=== PATIENT | male | born 1945 | race Caucasian/White ===

== ENCOUNTER 2020-08-18 22:55 | Emergency (ER) | payer OTHER ==
[2020-08-18 23:39] LABS: Absolute Lymphocytes (CBC) 1.3 K/uL (0.7-4.9); Basophils % 0.8 % (0-1.3); Hematocrit 39.2 % (39.6-49.0); Lymphocytes % 16.8 % (15.3-44.8); MPV 7.7 fL (7.6-11.3); RBC Red Blood Cell Count 4.39 M/uL (4.33-5.43)
[2020-08-18 23:42] LABS: Protime INR 0.97
[2020-08-18 23:50] LABS: Albumin 3.9 g/dL (3.4-5.0); Bilirubin Direct 0.1 mg/dL (0-0.2); Bilirubin Total 0.4 mg/dL (0.2-1.0); Potassium 3.8 mmol/L (3.5-5.1); Protein, Total 7.4 g/dL (6.4-8.2)
[2020-08-19] MEDS ORDERED: MORPHINE 4 MG/ML SYR ONE (00:05)
[2020-08-19] MEDS ORDERED: ONDANSETRON 4 MG/2 ML VIAL ONE (00:06)
--- NOTE | 2020-08-19 02:16 | EDPHYS ---
Physician Documentation [facility] Name: Lazaro Shipman Age: 75 yrs Sex: Male : 1945 Arrival Date: 08/18/2020 Time: 22:58 Bed 19 Private MD: ED Physician Bassem Hicks HPI: 08/18 23:11 This 75 yrs old Male presents to ER via Ambulatory with complaints of Leg mh7 Pain. 23:11 The patient presents with an injury. The complaints affect the medial aspect of left mh7 thigh. Context:. 23:12 Context: The problem was sustained at work, resulted from a direct blow, Catie, the mh7 patient falling, while walking, the patient tripping, the patient can fully bear weight, the patient is able to ambulate, without difficulty, Problem is a result from a previous injury: No. Onset: The symptoms/episode began/occurred today, at 15:00. Modifying factors: The symptoms are alleviated by nothing. the symptoms are aggravated by nothing. Associated signs and symptoms: Pertinent positives: swelling, Pertinent negatives calf tenderness, fever, nausea, numbness, rash, tingling, vomiting, warmth, weakness. Treatment prior to arrival includes: no previous treatment. Severity of symptoms: At their worst the symptoms were moderate, earlier today, in the emergency department the symptoms are unchanged. Historical: - Allergies: 23:09 No Known Allergies; jb4 - Home Meds: 23:09 Metoprolol Tartrate Oral [Active]; jb4 - PMHx: 23:09 Hypertension; jb4 - PSHx: 23:09 None; jb4 - Immunization history:: Adult Immunizations up to date. - Social history:: Smoking status: Patient denies any tobacco usage or history of. Patient/guardian denies using alcohol, street drugs. ROS: 23:12 Constitutional: Negative for fever, chills, and weight loss, Eyes: Negative for injury, mh7 pain, redness, and discharge, ENT: Negative for injury, pain, and discharge, Neck: Negative for injury, pain, and swelling, Cardiovascular: Negative for chest pain, palpitations, and edema, Respiratory: Negative for shortness of breath, cough, wheezing, and pleuritic chest pain, Abdomen/GI: Negative for abdominal pain, nausea, vomiting, diarrhea, and constipation, Back: Negative for injury and pain, : Negative for injury, bleeding, discharge, and swelling, Neuro: Negative for headache, weakness, numbness, tingling, and seizure, Psych: Negative for depression, anxiety, suicide ideation, homicidal ideation, and hallucinations, Allergy/Immunology: Negative for hives, rash, and allergies, Endocrine: Negative for neck swelling, polydipsia, polyuria, polyphagia, and marked weight changes, Hematologic/Lymphatic: Negative for swollen nodes, abnormal bleeding, and unusual bruising. Exam: 08/19 02:10 Constitutional: This is a well developed, well nourished patient who is awake, alert, mh7 and in no acute distress. Head/Face: Normocephalic, atraumatic. Eyes: Pupils equal round and reactive to light, extra-ocular motions intact. Lids and lashes normal. Conjunctiva and sclera are non-icteric and not injected. Cornea within normal limits. Periorbital areas with no swelling, redness, or edema. Neck: Trachea midline, no thyromegaly or masses palpated, and no cervical lymphadenopathy. Supple, full range of motion without nuchal rigidity, or vertebral point tenderness. No Meningismus. Chest/axilla: Normal chest wall appearance and motion. Nontender with no deformity. No lesions are appreciated. Cardiovascular: Regular rate and rhythm with a normal S1 and S2. No gallops, murmurs, or rubs. Normal PMI, no JVD. No pulse deficits. Respiratory: Lungs have equal breath sounds bilaterally, clear to auscultation and percussion. No rales, rhonchi or wheezes noted. No increased work of breathing, no retractions or nasal flaring. Abdomen/GI: Soft, non-tender, with normal bowel sounds. No distension or tympany. No guarding or rebound. No evidence of tenderness throughout. Back: No spinal tenderness. No costovertebral tenderness. Full range of motion. Neuro: Awake and alert, GCS 15, oriented to person, place, time, and situation. Cranial nerves II-XII grossly intact. Motor strength 5/5 in all extremities. Sensory grossly intact. Cerebellar exam normal. Normal gait. Psych: Awake, alert, with orientation to person, place and time. Behavior, mood, and affect are within normal limits. Musculoskeletal/extremity: Extremities: noted in the medial aspect of left thigh: ecchymosis, swelling, tenderness, ROM: intact in all extremities, Circulation is intact in all extremities. Pulses: are normal with no appreciated deficits, Perfusion: the patient is normally perfused throughout, Perfusion: the extremity is normally perfused throughout, Calf tenderness, is absent, Edema, is not appreciated, Sensation intact. Compartment Syndrome exam of affected extremity: is normal. no numbness, no tingling, no sensation deficit, no palor, no weak pulses, Joints: All joints appear normal with full range of motion. Weight bearing: able to fully bear weight, without difficulty, Tendon exam: specific tendon testing normal through active and passive range of motion Skin: injury, contusion(s), that are deep, of the medial aspect of left thigh. Vital Signs: 08/18 23:15 BP 151 / 76; Pulse 100; Resp 16; Temp 98.5; Pulse Ox 98% on R/A; Pain 0/10; jb4 08/19 00:15 BP 137 / 96; Pulse 95; Resp 16; Pulse Ox 95% on R/A; jb4 01:30 BP 108 / 51; Pulse 89; Resp 16; Pulse Ox 96% on R/A; jb4 MDM: 02:10 Differential diagnosis: closed fracture, contusion, abrasion, Heamtoma. Data reviewed: [facility] vital signs, nurses notes, lab test result(s), CBC, electrolytes, radiologic studies, CT scan, plain films. Data interpreted: Pulse oximetry: on room air is 96 %. Interpretation: normal. Counseling: I had a detailed discussion with the patient and/or guardian regarding: the historical points, exam findings, and any diagnostic results supporting the discharge/admit diagnosis, lab results, radiology results, the need for outpatient follow up, to return to the emergency department if symptoms worsen or persist or if there are any questions or concerns that arise at home. Response to treatment: the patient's symptoms have markedly improved after treatment. 02:15 Patient medically screened. [facility] 08/18 23:11 Order name: Basic Metabolic Panel; Complete Time: 00:01 [facility] 08/18 23:11 Order name: CBC with Diff; Complete Time: 00:01 [facility] 08/18 23:11 Order name: Type And Screen; Complete Time: 02:10 [facility] 08/18 23:11 Order name: LFT's; Complete Time: 00:01 [facility] 08/18 23:11 Order name: Protime (+inr); Complete Time: 00:01 [facility] 08/18 23:11 Order name: Ptt, Activated; Complete Time: 00:01 [facility] 08/18 23:11 Order name: Labs collected and sent; Complete Time: 23:25 [facility] 08/18 23:11 Order name: Femur Left XRAY [facility] 08/19 00:07 Order name: CPK; Complete Time: 02:10 [facility] 08/19 00:12 Order name: Lower Ext Angio [facility] 08/19 02:10 Order name: Bridger Wrap; Complete Time: 02:26 [facility] Administered Medications: 00:05 Drug: Zofran (Ondansetron) 4 mg Route: IVP; Site: right antecubital; [facility] 00:30 Follow up: Response: No adverse reaction [facility] 00:07 Drug: morphine 4 mg Route: IVP; Site: right antecubital; 4 00:30 Follow up: Response: No adverse reaction; Pain is decreased; RASS: Alert and Calm (0) 4 Disposition: 08/19/20 02:15 Discharged to Home. Impression: Fall-Mechanical, Left Thigh Hematoma. - Condition is Stable. - Discharge Instructions: Hematoma, [id number], Fall Prevention in the Home, [id number]. - Prescriptions for Tylenol- Codeine #3 300-30 mg Oral Tablet - take 2 tablets by ORAL route every 6 hours As needed; 20 tablet. - Medication Reconciliation Form, Thank You Letter, Antibiotic Education, Prescription Opioid Use form. - Follow up: Private Physician; When: 1 - 2 days; Reason: Worsening of condition, Recheck today's complaints, Continuance of care, Re-evaluation by your physician. - Problem is new. - Symptoms have improved. Signatures: Dispatcher [facility] Marvin Vogel RN RN jb4 Bassem Hicks MD MD 7 Corrections: (The following items were deleted from the chart) 02:28 02:15 08/19/2020 02:15 Discharged to Home. Impression: Fall-Mechanical; Left Thigh jb4 Hematoma. Condition is Stable. Forms are Medication Reconciliation Form, Thank You Letter, Antibiotic Education, Prescription Opioid Use. Follow up: Private Physician; When: 1 - 2 days; Reason: Worsening of condition, Recheck today's complaints, Continuance of care, Re-evaluation by your physician. Problem is new. Symptoms have improved. mh7
--- NOTE | 2020-08-19 02:16 | ER ---
Nurse's Notes [facility] Name: Lazaro Shipman Age: 75 yrs Sex: Male : 1945 Arrival Date: 08/18/2020 Time: 22:58 Bed 19 Private MD: Diagnosis: Fall-Mechanical;Left Thigh Hematoma Presentation: 08/18 23:07 Chief complaint: Patient states: I slipped and fell on the blade of a lexie at 3pm on jb4 my left thigh. Coronavirus screen: Client denies travel out of the [place] in the last 14 days. At this time, the client does not indicate any symptoms associated with coronavirus-19. Ebola Screen: No symptoms or risks identified at this time. Initial Sepsis Screen: Does the patient meet any 2 criteria? No. Patient's initial sepsis screen is negative. Does the patient have a suspected source of infection? No. Patient's initial sepsis screen is negative. Risk Assessment: Do you want to hurt yourself or someone else? Patient reports no desire to harm self or others. Onset of symptoms was August 18, 2020. Transition of care: patient was not received from another setting of care. 23:07 Method Of Arrival: Ambulatory jb4 23:07 Acuity: KERI 3 jb4 Historical: - Allergies: 23:09 No Known Allergies; jb4 - Home Meds: 23:09 Metoprolol Tartrate Oral [Active]; jb4 - PMHx: 23:09 Hypertension; jb4 - PSHx: 23:09 None; jb4 - Immunization history:: Adult Immunizations up to date. - Social history:: Smoking status: Patient denies any tobacco usage or history of. Patient/guardian denies using alcohol, street drugs. Screenin:15 Abuse screen: Denies threats or abuse. Nutritional screening: No deficits noted. jb4 Tuberculosis screening: No symptoms or risk factors identified. Fall Risk None identified. Assessment: 23:15 General: Appears in no apparent distress. comfortable, Behavior is calm, cooperative, jb4 appropriate for age. Pain: Denies pain. Neuro: Level of Consciousness is awake, alert, obeys commands, Oriented to person, place, time, situation. Cardiovascular: Patient's skin is warm and dry. Respiratory: Airway is patent Respiratory effort is even, unlabored, Respiratory pattern is regular, symmetrical. GI: No signs and/or symptoms were reported involving the gastrointestinal system. : No signs and/or symptoms were reported regarding the genitourinary system. EENT: No signs and/or symptoms were reported regarding the EENT system. Derm: Skin is intact, Skin is pink, warm \T\ dry. Musculoskeletal: Circulation, motion, and sensation intact. Range of motion: intact in all extremities. Injury Description: Bruise sustained to medial aspect of left thigh is green, purple, yellow, was sustained 6-12 hours ago. hematoma to the left thigh. 08/19 00:24 Reassessment: Patient appears in no apparent distress at this time. Patient and/or jb4 family updated on plan of care and expected duration. Pain level reassessed. Patient is alert, oriented x 3, equal unlabored respirations, skin warm/dry/pink. 01:45 Reassessment: Patient appears in no apparent distress at this time. Patient and/or jb4 family updated on plan of care and expected duration. Pain level reassessed. Patient is alert, oriented x 3, equal unlabored respirations, skin warm/dry/pink. Family at the bedside. 02:27 Reassessment: Patient appears in no apparent distress at this time. Patient and/or jb4 family updated on plan of care and expected duration. Pain level reassessed. Patient is alert, oriented x 3, equal unlabored respirations, skin warm/dry/pink. Patient denies pain at this time. Patient states feeling better. Vital Signs: 08/18 23:15 BP 151 / 76; Pulse 100; Resp 16; Temp 98.5; Pulse Ox 98% on R/A; Pain 0/10; jb4 08/19 00:15 BP 137 / 96; Pulse 95; Resp 16; Pulse Ox 95% on R/A; jb4 01:30 BP 108 / 51; Pulse 89; Resp 16; Pulse Ox 96% on R/A; jb4 ED Course: 08/18 22:58 Patient arrived in ED. ag3 23:00 Bassem Hicks MD is Attending Physician. mh7 23:01 Marvin Vogel, ROLAND is Primary Nurse. jb4 23:08 Triage completed. jb4 23:09 Arm band placed on right wrist. jb4 23:20 Initial lab(s) drawn, by tx, sent to lab. T\T\S collected, blood band applied to patient. jp3 Inserted saline lock: 20 gauge in right antecubital area, using aseptic technique. Blood collected. Patient maintains SpO2 saturation greater than 95% on room air. 23:24 Bed in low position. Call light in reach. Side rails up X 1. Verbal reassurance given. jp3 Pulse ox on. NIBP on. 08/19 00:10 Femur Left XRAY In Process Unspecified. EDMS 01:12 Lower Ext Angio In Process Unspecified. EDMS 02:28 No provider procedures requiring assistance completed. IV discontinued, intact, jb4 bleeding controlled, No redness/swelling at site. Pressure dressing applied. Administered Medications: 00:05 Drug: Zofran (Ondansetron) 4 mg Route: IVP; Site: right antecubital; 4 00:30 Follow up: Response: No adverse reaction jb4 00:07 Drug: morphine 4 mg Route: IVP; Site: right antecubital; jb4 00:30 Follow up: Response: No adverse reaction; Pain is decreased; RASS: Alert and Calm (0) [facility] Outcome: 02:15 Discharge ordered by . [facility] 02:28 Discharged to home ambulatory, with family. jb4 02:28 Condition: stable 02:28 Discharge instructions given to patient, Instructed on discharge instructions, follow up and referral plans. no driving heavy equipment, medication usage, Demonstrated understanding of instructions, follow-up care, medications, Prescriptions given X 1. 02:28 Patient left the ED. jb4 Signatures: Dispatcher [employer] EDMarvin Ferraro RN RN jb4 Brenden Bhatti 3 Sho Frazier 3 Bassem Hicks MD MD 7
[2020-08-19 09:34] VITALS: TEMP 98.5
[2020-08-19 09:37] VITALS: BP 108/51; O2SAT 96
--- NOTE | 2020-08-19 15:53 | RAD REPORT ---
EXAM DESCRIPTION: CT Angiography of the Left Lower Extremity With Intravenous Contrast CLINICAL HISTORY: The patient is 75 years old and is Male; left thigh pain TECHNIQUE: Axial computed tomographic angiography images of the left lower extremity with intravenou s contrast. Sagittal and coronal reformatted images were created and reviewed. This CT exam was p erformed using one or more of the following dose reduction techniques: automated exposure control, adjustment of the mA and/or kV according to patient size, and/or use of iterative reconstruction tech nique. MIP reconstructed images were created and reviewed. COMPARISON: No relevant prior studies available. FINDINGS: VASCULATURE: LEFT FEMORAL/POPLITEAL ARTERIES: No acute findings. No occlusion or significant stenosis. LOWER EXTREMITY: BONES/JOINTS: No acute fracture. No dislocation. SOFT TISSUES: Fat-containing left inguinal hernia is present. Skin thickening along the medial left thigh is present. Diffuse subcutaneous edema along the medial left thigh is present. An 8.2 x 5. 0 cm slightly heterogeneous collection along the medial left thigh subcutaneous tissues. There is a b lush of contrast within this collection. IMPRESSION: No CT evidence of injury to the major arterial vasculature of the left upper leg. Small focus of contrast extravasation in the medial soft tissues related to a small branch vessel with asso ciated hematoma formation. Electronically signed by: Marycruz Nava MD 08/19/2020 1:47 AM PECAN PICKER Due to temporary technical issues with the PACS/Fluency reporting system, reports are being signed by the in house radiologists without review as a courtesy to insure prompt reporting. The interpreting radiologist is fully responsible for the content of the report.
--- NOTE | 2020-08-19 16:31 | RAD REPORT ---
EXAM DESCRIPTION: XR Femur Left CLINICAL HISTORY: Trauma TECHNIQUE: Two views of the left femur are submitted. COMPARISON: None available for comparison FINDINGS: Bones: No acute fracture. Joints: No dislocation. Soft tissues: Soft tissue swelling about the medial aspect of the thigh. IMPRESSION: Medial soft tissue swelling. No acute fracture. Electronically signed by: Silvia Levi MD 08/19/2020 12:28 AM COOK LARDER Due to temporary technical issues with the PACS/Fluency reporting system, reports are being signed by the in house radiologists without review as a courtesy to insure prompt reporting. The interpreting radiologist is fully responsible for the content of the report.
== END 2020-08-19 02:28 | disposition home or self-care (01) ==
LOC: ER 22:55
DX: S70.12XA Contusion of left thigh, initial encounter (principal); W01.198A Fall on same level from slipping, tripping and stumbling with subsequent striking against other object, initial encounter; Y93.89 Activity, other specified; Y92.89 Other specified places as the place of occurrence of the external cause; Y99.8 Other external cause status; I10 Essential (primary) hypertension
CPT/HCPCS: 85025; 80048; 36415; 86900; 86850; 82550; 85610; 86901; 80076; 85730; 73706; 73552; 96375; 96374; 99284; Q9967

== ENCOUNTER 2021-04-13 17:20 | Emergency (ER) | payer OTHER ==
[2021-04-13] MEDS ORDERED: NA CHLORIDE 0.9% 1,000 ML ONE (21:08)
[2021-04-13] MEDS ORDERED: MORPHINE 4 MG/ML SYR ONE (21:08)
[2021-04-13] MEDS ORDERED: ONDANSETRON 4 MG/2 ML VIAL ONE (21:08)
[2021-04-13 21:22] LABS: Absolute Lymphocytes (CBC) 0.5 K/uL (0.7-4.9); Basophils % 0.2 % (0-1.3); Hematocrit 47.1 % (39.6-49.0); Lymphocytes % 3.6 % (15.3-44.8); MPV 7.7 fL (7.6-11.3); RBC Red Blood Cell Count 5.21 M/uL (4.33-5.43)
[2021-04-13 21:47] LABS: Albumin 4.2 g/dL (3.4-5.0); Bilirubin Direct 0.2 mg/dL (0-0.2); Bilirubin Total 0.7 mg/dL (0.2-1.0); Potassium 3.7 mmol/L (3.5-5.1); Protein, Total 8.3 g/dL (6.4-8.2)
--- NOTE | 2021-04-13 21:59 | RAD REPORT ---
EXAM DESCRIPTION: CTAbdomen Pelvis W Contrast - 04/13/2021 9:49 pm CLINICAL HISTORY: Abdominal pain. ABD PAIN COMPARISON: <Comparisons> TECHNIQUE: Biphasic CT imaging of the abdomen and pelvis was performed with 100 ml non-ionic IV cont rast. All CT scans are performed using dose optimization technique as appropriate and may include automated exposure control or mA/KV adjustment according to patient size. FINDINGS: The lung bases are clear. No focal liver lesions are identified. Gallbladder is unremarkable. The pancreas is unremarkable. The spleen is unremarkable. No adrenal masses are seen. Left nephrolithiasis. Mild right-sided hydroneph rosis secondary to a 7 millimeter stone in the right distal ureter, proximal to the UVJ. Atherosclero sis. No bowel obstruction is identified. No aneurysm. Normal appendix. Fat containing inguinal hernia s. Fused sacroiliac joints may be secondary underlying degenerative changes. Degenerate changes are p resent spine. No suspicious bony findings. 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 IMPRESSION: Mild right-sided hydronephrosis secondary to a 7 millimeter stone in the right distal ur eter.
[2021-04-13 22:04] LABS: Urine Blood 3+ (Negative); Urine Glucose Negative (Negative); Urine Protein Negative (Negative); Urine Specific Gravity 1.015 (1.005-1.030); Urine pH 6.5 (5.0-7.0)
[2021-04-13 22:13] LABS: Urine Bacteria >50 /HPF (NONE SEEN)
[2021-04-13] MEDS ORDERED: TAMSULOSIN 0.4 MG SR CAP ONE (22:42)
[2021-04-13] MEDS ORDERED: CEFTRIAXONE/SWI 1gm 1 GM/10 ML SYR ONE (22:43)
[2021-04-13] MEDS ORDERED: Magnesium Sulfate 2gm IVPB 2 G/50 ML BAG IV ONE (22:43)
--- NOTE | 2021-04-13 22:50 | EDPHYS ---
Physician Documentation [facility] Name: Lazaro Shipman Age: 75 yrs Sex: Male : 1945 Arrival Date: 04/13/2021 Time: 17:23 Bed 3 Private MD: ED Physician Bassem Hicks HPI: 04/13 23:24 This 75 yrs old Male presents to ER via Ambulatory with complaints of kb Abdominal Pain. 23:23 The patient presents with abdominal pain. kb 23:24 Onset: The symptoms/episode began/occurred today. The symptoms do not radiate. kb Associated signs and symptoms: Pertinent positives: constipation, dysuria, Pertinent negatives: nausea, vomiting, and diarrhea, fever. The symptoms are described as constant. Modifying factors: The symptoms are alleviated by nothing, the symptoms are aggravated by pressure. Severity of pain: At its worst the pain was moderate in the emergency department the pain is unchanged. The patient has not experienced similar symptoms in the past. The patient has not recently seen a physician. Historical: - Allergies: 17:33 No Known Allergies; ll1 - PMHx: 17:33 Hypertension; ll1 - PSHx: 17:33 None; ll1 - Immunization history:: Client reports receiving the 1st dose of the Covid vaccine, Flu vaccine is not up to date. - Social history:: Smoking status: Patient denies any tobacco usage or history of. ROS: 23:21 Constitutional: Negative for fever, chills, and weight loss. kb 23:21 Abdomen/GI: Positive for abdominal pain, constipation, Negative for nausea, vomiting, and diarrhea. 23:21 All other systems are negative. 23:21 : Positive for burning with urination. kb Exam: 23:21 Constitutional: This is a well developed, well nourished patient who is awake, alert, kb and in no acute distress. Head/Face: Normocephalic, atraumatic. ENT: Moist Mucous membranes Cardiovascular: Regular rate and rhythm with a normal S1 and S2. No gallops, murmurs, or rubs. No pulse deficits. Respiratory: Respirations even and unlabored. No increased work of breathing, no retractions or nasal flaring. Skin: Warm, dry with normal turgor. Normal color. MS/ Extremity: Pulses equal, no cyanosis. Neurovascular intact. Full, normal range of motion. Neuro: Awake and alert, GCS 15, oriented to person, place, time, and situation. Moves all extremities. Normal gait. Psych: Awake, alert, with orientation to person, place and time. Behavior, mood, and affect are within normal limits. 23:21 Abdomen/GI: Inspection: abdomen appears normal, Bowel sounds: normal, in all quadrants, Palpation: soft, in all quadrants, moderate abdominal tenderness, in the right lower quadrant. Vital Signs: 17:34 BP 192 / 95; Pulse 81; Resp 18; Temp 98.2; Pulse Ox 98% ; Weight 136.08 kg; Height 5 ll1 ft. 8 in. (172.72 cm); Pain 9/10; 22:02 BP 160 / 96; Pulse 78; Resp 16; Pulse Ox 99% on R/A; Pain 0/10; em 17:34 Body Mass Index 45.61 (136.08 kg, 172.72 cm) ll1 MDM: 20:26 Patient medically screened. kb 22:52 Data reviewed: vital signs, nurses notes. Data interpreted: Pulse oximetry: on room air kb is 99 %. Interpretation: normal. Counseling: I had a detailed discussion with the patient and/or guardian regarding: the historical points, exam findings, and any diagnostic results supporting the discharge/admit diagnosis, lab results, radiology results, the need for outpatient follow up, a urologist, to return to the emergency department if symptoms worsen or persist or if there are any questions or concerns that arise at home. 23:22 ED course: Pt has no upper abd tenderness, no nausea/vomiting. No s/s of pancreatitis. kb CT shows unremarkable pancreas. 23:23 ED course: Pain resolved at this time. kb 04/13 18:04 Order name: Urine Microscopic Only; Complete Time: 22:15 kb 04/13 20:27 Order name: Basic Metabolic Panel; Complete Time: 21:54 kb 04/13 20:27 Order name: CBC with Diff; Complete Time: 23:19 kb 04/13 20:27 Order name: Hepatic Function; Complete Time: 21:54 kb 04/13 20:27 Order name: Lipase; Complete Time: 21:54 kb 04/13 22:03 Order name: Urine Dipstick-Ancillary; Complete Time: 22:06 EDMS 04/13 20:40 Order name: CT Abd/Pelvis - IV Contrast Only; Complete Time: 22:02 kb 04/13 22:14 Order name: Urine Culture [facility] 04/13 22:16 Order name: Manual Differential; Complete Time: 23:19 [facility] 04/13 18:04 Order name: Urine Dipstick-Ancillary (obtain specimen); Complete Time: 22:03 kb 04/13 20:27 Order name: IV Saline Lock; Complete Time: 21:09 kb 04/13 20:27 Order name: Labs collected and sent; Complete Time: 21:09 kb Administered Medications: 21:05 Drug: NS 0.9% 1000 ml Route: IV; Rate: 1000 ml; Site: right antecubital; em 22:08 Follow up: IV Status: Completed infusion; IV Intake: 1000ml em 21:05 Drug: Zofran (Ondansetron) 4 mg Route: IVP; Site: right antecubital; em 22:02 Follow up: Response: No adverse reaction em 21:07 Drug: morphine 4 mg Route: IVP; Site: right antecubital; em 22:02 Follow up: Response: No adverse reaction; Marked relief of symptoms; Pain is decreased; em RASS: Alert and Calm (0) 22:27 Drug: Rocephin (cefTRIAXone) 1 grams Route: IV; Rate: calculated rate; Site: right em antecubital; 23:13 Follow up: Response: No adverse reaction; IV Status: Completed infusion; IV Intake: 10mlem 22:30 Drug: Magnesium Sulfate 2 grams Route: IVPB; Infused Over: 1 hrs; Site: right em antecubital; 23:31 Follow up: Response: No adverse reaction; IV Status: Completed infusion; IV Intake: 50mlem 22:30 Drug: Flomax (tamsulosin) 0.4 mg Route: PO; em 23:13 Follow up: Response: No adverse reaction em Disposition: 04/14 06:38 Co-signature as Attending Physician, Bassem Hicks MD. [email or web address] Disposition Summary: 04/13/21 22:49 Discharge Ordered Location: Home Condition: Stable kb Diagnosis - Calculus of ureter kb Followup: kb - With: Emergency Department - When: As needed - Reason: Worsening of condition Followup: kb - With: Private Physician - When: 2 - 3 days - Reason: Recheck today's complaints, Continuance of care, Re-evaluation by your physician Discharge Instructions: - Discharge Summary Sheet kb - Kidney Stones, [id number] kb - Dietary Guidelines to Help Prevent Kidney Stones kb Forms: - Medication Reconciliation Form kb - Thank You Letter kb - Antibiotic Education kb - Prescription Opioid Use kb Prescriptions: - Flomax 0.4 mg Oral capsule - take 1 capsule by ORAL route once daily for 10 days 1/2 hour following the same kb meal each day; 10 capsule; Refills: 0, Product Selection Permitted - Cipro 500 mg Oral Tablet - take 1 tablet by ORAL route every 12 hours for 10 days; 20 tablet; Refills: 0, kb Product Selection Permitted - Zofran 4 mg Oral Tablet - take 1 tablet by ORAL route every 6 hours As needed; 20 tablet; Refills: 0, kb Product Selection Permitted - Diclofenac Sodium 75 mg Oral tablet,delayed release (DR/EC) - take 1 tablet by ORAL route 2 times per day As needed; 30 tablet; Refills: 0, kb Product Selection Permitted - Tramadol 50 mg Oral Tablet - take 1 tablet by ORAL route every 8 hours as needed; 12 tablet; Refills: 0, kb Product Selection Permitted Signatures: Dispatcher [employer] EDMS Guerita Ward, FURNITURE SANDER-C FURNITURE SANDER-Khoa Dorado RN RN Lisa Sullivan RN RN ll1 Bassem Hicks MD MD [email or web address] Corrections: (The following items were deleted from the chart) 04/13 23:22 23:21 Abdomen/GI: Positive for abdominal pain, Negative for nausea, vomiting, and kb diarrhea, kb 23:23 23:22 ED course: Pt has no upper abd tenderness, no nausea/vomiting. No s/s of kb pancreatitis.. kb
--- NOTE | 2021-04-13 22:50 | ER ---
Nurse's Notes [facility] Name: Lazaro Shipman Age: 75 yrs Sex: Male : 1945 Arrival Date: 04/13/2021 Time: 17:23 Bed 3 Private MD: Diagnosis: Calculus of ureter Presentation: 04/13 17:34 Chief complaint: Patient states: RLQ abd pain since last night. + constipation. Slight ll1 dysuria at times. No fever. Coronavirus screen: Client denies travel out of the [place] in the last 14 days. At this time, the client does not indicate any symptoms associated with coronavirus-19. Ebola Screen: Patient denies travel to an Ebola-affected area in the 21 days before illness onset. Initial Sepsis Screen: Does the patient meet any 2 criteria? No. Patient's initial sepsis screen is negative. Does the patient have a suspected source of infection? Yes: Acute abdominal pain. Risk Assessment: Do you want to hurt yourself or someone else? Patient reports no desire to harm self or others. Onset of symptoms was April 12, 2021. 17:34 Method Of Arrival: Ambulatory ll1 17:34 Acuity: KERI 3 ll1 Historical: - Allergies: 17:33 No Known Allergies; ll1 - PMHx: 17:33 Hypertension; ll1 - PSHx: 17:33 None; ll1 - Immunization history:: Client reports receiving the 1st dose of the Covid vaccine, Flu vaccine is not up to date. - Social history:: Smoking status: Patient denies any tobacco usage or history of. Screenin:09 Abuse screen: Denies threats or abuse. Nutritional screening: No deficits noted. em Tuberculosis screening: No symptoms or risk factors identified. Fall Risk None identified. Assessment: 21:00 General: Appears in no apparent distress. uncomfortable, Behavior is calm, cooperative, em appropriate for age, Reports chills for 12-24 hours. Pain: Complains of pain in right lower quadrant Pain currently is 9 out of 10 on a pain scale. Pain began 1 day ago. Neuro: Level of Consciousness is awake, alert, obeys commands, Oriented to person, place, time, situation, Appropriate for age. Cardiovascular: Capillary refill < 3 seconds Patient's skin is warm and dry. Respiratory: Airway is patent Respiratory effort is even, unlabored, Respiratory pattern is regular, symmetrical. GI: Abdomen is round non-distended, Reports constipation, Patient currently denies diarrhea, nausea, vomiting. : Denies burning with urination. Derm: Skin is intact, is healthy with good turgor, Skin is pink, warm \T\ dry. Musculoskeletal: Capillary refill < 3 seconds, Range of motion: intact in all extremities. 22:02 Reassessment: Patient appears in no apparent distress at this time. Patient and/or em family updated on plan of care and expected duration. Pain level reassessed. Patient is alert, oriented x 3, equal unlabored respirations, skin warm/dry/pink. 23:11 Reassessment: pending completion of IV mag before being discharged. em Vital Signs: 17:34 BP 192 / 95; Pulse 81; Resp 18; Temp 98.2; Pulse Ox 98% ; Weight 136.08 kg; Height 5 ll1 ft. 8 in. (172.72 cm); Pain 9/10; 22:02 BP 160 / 96; Pulse 78; Resp 16; Pulse Ox 99% on R/A; Pain 0/10; em 17:34 Body Mass Index 45.61 (136.08 kg, 172.72 cm) ll1 ED Course: 17:23 Patient arrived in ED. ds1 17:34 Arm band placed on. ll1 17:35 Triage completed. ll1 18:51 Guerita Ward FNP-C [facility]. kb 18:51 Bassem Hicks MD is Attending Physician. kb 20:57 Khoa Choi, RN is Primary Nurse. em 21:05 Initial lab(s) drawn, by me, sent to lab. Inserted saline lock: 20 gauge in right em antecubital area, using aseptic technique. Blood collected. 21:09 Patient has correct armband on for positive identification. Bed in low position. Side em rails up X2. Adult w/ patient. Pulse ox on. NIBP on. 21:49 CT Abd/Pelvis - IV Contrast Only In Process Unspecified. EDMS 23:31 No provider procedures requiring assistance completed. IV discontinued, intact, em bleeding controlled, No redness/swelling at site. Pressure dressing applied. Administered Medications: 21:05 Drug: NS 0.9% 1000 ml Route: IV; Rate: 1000 ml; Site: right antecubital; em 22:08 Follow up: IV Status: Completed infusion; IV Intake: 1000ml em 21:05 Drug: Zofran (Ondansetron) 4 mg Route: IVP; Site: right antecubital; em 22:02 Follow up: Response: No adverse reaction em 21:07 Drug: morphine 4 mg Route: IVP; Site: right antecubital; em 22:02 Follow up: Response: No adverse reaction; Marked relief of symptoms; Pain is decreased; em RASS: Alert and Calm (0) 22:27 Drug: Rocephin (cefTRIAXone) 1 grams Route: IV; Rate: calculated rate; Site: right em antecubital; 23:13 Follow up: Response: No adverse reaction; IV Status: Completed infusion; IV Intake: 10mlem 22:30 Drug: Magnesium Sulfate 2 grams Route: IVPB; Infused Over: 1 hrs; Site: right em antecubital; 23:31 Follow up: Response: No adverse reaction; IV Status: Completed infusion; IV Intake: 50mlem 22:30 Drug: Flomax (tamsulosin) 0.4 mg Route: PO; em 23:13 Follow up: Response: No adverse reaction em Intake: 22:08 IV: 1000ml; Total: 1000ml. em 23:13 IV: 10ml; Total: 1010ml. em 23:31 IV: 50ml; Total: 1060ml. em Outcome: 22:49 Discharge ordered by MD. kb 23:31 Discharged to home ambulatory, with family. em 23:31 Condition: improved 23:31 Discharge instructions given to patient, family, Instructed on discharge instructions, follow up and referral plans. medication usage, Demonstrated understanding of instructions, follow-up care, medications, Prescriptions given X 5 23:32 Patient left the ED. em Addendum: 04/17/2021 08:26 Addendum: Culture Results: Positive urine culture. No further action required. Bacteria s s sensitive to prescribed antibiotic. Signatures: Dispatcher [employer] Guerita Hartman, GOLD MARKER-C GOLD MARKER-Khoa Dorado RN RN Georgiana Corbin ds1 Natividad Rosas RN RN Lisa Hargrove RN RN ll1
[2021-04-13 23:06] LABS: Blood Morphology Comment NOT SEEN (NOT SEEN); Platelet Estimate ADEQ
[2021-04-13 23:41] VITALS: TEMP 98.2
[2021-04-13 23:43] VITALS: BP 160/96; O2SAT 99
== END 2021-04-13 23:32 | disposition home or self-care (01) ==
LOC: ER 17:20
DX: N20.1 Calculus of ureter (principal); I10 Essential (primary) hypertension
CPT/HCPCS: 96365; 96361; 87088; 85025; 87086; 80048; 36415; 82565; 80076; 87077; 87186; 83690; 74177; 96375; 99284; Q9967; J3475; J0696; J7030; J2405; 81003; 81015

== ENCOUNTER 2024-09-27 04:08 | Inpatient (IN) | payer OTHER ==
--- OUTSIDE RECORDS SUMMARY | 2024-09-27 04:11 | XMS REPORT | Continuity of Care Document ---
Author Name Unknown Address [address] [address] [place] [address] [facility] thconnect Address [address] [place] [address] Care Team Providers Care Outpatient Coder Name Role Phone Unavailable Unavailable Unavailable Encounters Start Date/Time End Date/Time Encounter Type Admission Type Attending Clinicians Care Facility Care Department Encounter ID Source 2022-02-12 16:01:06 Outpatient [facility] [id number] [facility] 2021-10-23 12:52:49 Outpatient [facility] [id number] [facility] 2021-10-23 12:27:[address] [facility] [id number] [facility]
[2024-09-27 04:40] LABS: Absolute Basophils 0.1 K/uL (0-0.5); Absolute Eosinophils 0.1 K/uL (0-0.5); Absolute Lymphocytes (CBC) 1.3 K/uL (0.7-4.9); Absolute Monocytes 0.6 K/uL (0.1-1.3); Absolute Neutrophil 4.2 K/uL (1.8-8.0); Basophils % 0.9 % (0-1.3); Eosinophils % 1.8 % (0-4.4); Hematocrit 45.7 % (39.6-49.0); Hemoglobin 15.4 g/dL (13.6-17.9); Lymphocytes % 20.6 % (15.3-44.8); MCH 30.8 pg (27.0-35.0); MCHC 33.6 g/dL (32.0-36.0); MCV 91.6 fL (80-100); Monocytes % 9.9 % (3.3-12.3); Neutrophils % 66.8 % (41.7-73.7); Nucleated Red Blood Cells % 0.1 % (0-0); Platelets 217 thou/uL (152-406); RBC Red Blood Cell Count 4.99 M/uL (4.33-5.43); Red Cell Distribution Width 12.9 % (12.1-15.2)
[2024-09-27 04:46] LABS: PT Prothrombin Time 12.1 SECONDS (9.4-12.5); PTT, Activated Partial Thromb 33.6 SECONDS (24.3-36.9); Protime INR 1.08
[2024-09-27 05:28] LABS: ALT/SGPT 29 U/L (16-61); AST/SGOT 27 U/L (15-37); Albumin 3.1 g/dL (3.4-5.0); Albumin/Globulin Ratio 0.9 (1.1-1.8); Alkaline Phosphatase 58 U/L (45-117); Anion Gap 8.3 mEq/L (5.0-15.0); BUN Blood Urea Nitrogen 23 mg/dL (7-18); Bicarbonate 26 mEq/L (21-32); Bilirubin Total 0.5 mg/dL (0.2-1.0); Globulin 3.5 g/dL (2.3-3.5); Glomerular Filtration Rate 47 ml/min (=/>90); Glucose Level 106 mg/dL (74-106); NT PRO-BNP 176 pg/mL (<450); Potassium 3.3 mEq/L (3.5-5.1); Protein, Total 6.6 g/dL (6.4-8.2); Sodium Level 137 mEq/L (136-145); Troponin High Sensitivity 11.7 pg/mL (<58.9)
[2024-09-27] MEDS ORDERED: FOLIC ACID 1 MG TABLET ONE (05:36)
[2024-09-27 05:53] LABS: Bilirubin Direct < 0.2 mg/dL (0-0.2); Bilirubin Indirect, Calculated 0.3 mg/dL (0.2-0.8)
--- NOTE | 2024-09-27 05:57 | RAD REPORT ---
CLINICAL HISTORY: left arm and left leg weakness COMPARISON: None. TECHNIQUE: CT HEAD ANGIOGRAPHY WITH IV CONTRAST, CT NECK ANGIOGRAPHY WITH IV CONTRAST on 09/27/2024 4 :18 AM LEAD CLINICAL RESEARCH COORDINATOR This exam was performed according to our departmental dose-optimization program, which includes autom ated exposure control, adjustment of the mA and/or kV according to patient size and/or use of iterative reconstruction technique. MIP reconstructions were generated. Stenoses are calculated by NASCET criteria. FINDINGS: The visualized aortic arch and origins of the great vessels unremarkable. The common carotid arteries are patent and symmetric bilaterally. No hemodynamically significant stenosis is observed at the common carotid bifurcations or origins of the internal carotid arteries bilaterally. There are minimal right-sided and moderate left-sided proximal ICA calcifications. Vertebral arteries are unremarkable without evidence of pseudoaneurysm, hemodynamically significant s tenosis, or dissection. Intracranially the cavernous segments of the internal carotid arteries are patent and symmetric bilat erally. Vertebral basilar system within normal limits for age. No aneurysm identified within the [place] of [place]. Anterior, middle, and posterior cerebral circulat ions are patent and symmetric bilaterally. Dural sinuses are well opacified and without filling defect. IMPRESSION: Unremarkable CT angiogram of the neck for age without dissection or hemodynamically significant steno sis. Unremarkable CTA of the brain without evidence of hemodynamically significant stenosis, aneurysm or A VM. CAROTID STENOSIS REFERENCE USING NASCET CRITERIA: % ICA stenosis = (1 - narrowest ICA diameter/diameter of distal cervical ICA) x 100. Mild - <50% stenosis. Moderate - 50-69% stenosis. Severe - 70-94% stenosis. Near occlusion - 95-99% stenosis. Occluded - 100% stenosis. Electronically signed by: Gilberto Finn MD 09/27/2024 05:46 AM LEAD CLINICAL RESEARCH COORDINATOR RP Due to temporary technical issues with the PACS/[employer] reporting system, reports are being angela d by the in-house radiologist without review as a courtesy to ensure prompt reporting the interpreting radiologist is fully responsible for the content of the report. Transcribed Date/Time: 09/27/2024 5:56 AM
--- NOTE | 2024-09-27 05:58 | RAD REPORT ---
CLINICAL HISTORY: left arm and left leg weakness COMPARISON: None. TECHNIQUE: CT HEAD ANGIOGRAPHY WITH IV CONTRAST, CT NECK ANGIOGRAPHY WITH IV CONTRAST on 09/27/2024 4 :18 AM RIGGER THIRD This exam was performed according to our departmental dose-optimization program, which includes autom ated exposure control, adjustment of the mA and/or kV according to patient size and/or use of iterative reconstruction technique. MIP reconstructions were generated. Stenoses are calculated by NASCET criteria. FINDINGS: The visualized aortic arch and origins of the great vessels unremarkable. The common carotid arteries are patent and symmetric bilaterally. No hemodynamically significant stenosis is observed at the common carotid bifurcations or origins of the internal carotid arteries bilaterally. There are minimal right-sided and moderate left-sided proximal ICA calcifications. Vertebral arteries are unremarkable without evidence of pseudoaneurysm, hemodynamically significant s tenosis, or dissection. Intracranially the cavernous segments of the internal carotid arteries are patent and symmetric bilat erally. Vertebral basilar system within normal limits for age. No aneurysm identified within the [place]. Anterior, middle, and posterior cerebral circulat ions are patent and symmetric bilaterally. Dural sinuses are well opacified and without filling defect. IMPRESSION: Unremarkable CT angiogram of the neck for age without dissection or hemodynamically significant steno sis. Unremarkable CTA of the brain without evidence of hemodynamically significant stenosis, aneurysm or A VM. CAROTID STENOSIS REFERENCE USING NASCET CRITERIA: % ICA stenosis = (1 - narrowest ICA diameter/diameter of distal cervical ICA) x 100. Mild - <50% stenosis. Moderate - 50-69% stenosis. Severe - 70-94% stenosis. Near occlusion - 95-99% stenosis. Occluded - 100% stenosis. Electronically signed by: Gilberto Finn MD 09/27/2024 05:46 AM RIGGER THIRD RP Due to temporary technical issues with the PACS/[employer] reporting system, reports are being angela d by the in-house radiologist without review as a courtesy to ensure prompt reporting the interpreting radiologist is fully responsible for the content of the report. Transcribed Date/Time: 09/27/2024 5:57 AM
[2024-09-27] MEDS ORDERED: CLOPIDOGREL 75 MG TABLET ONE (06:00)
[2024-09-27] MEDS ORDERED: ASPIRIN 81 MG CHEWABLE TABLET ONE (06:01)
[2024-09-27] MEDS ORDERED: ATORVASTATIN 40 MG TAB ONE (06:01)
[2024-09-27] MEDS ORDERED: POTASSIUM 25 MEQ EFFERV TAB ONE (06:11)
[2024-09-27] MEDS ORDERED: NA CHLORIDE 0.9% 500 ML ONE (06:12)
--- NOTE | 2024-09-27 06:15 | RAD REPORT ---
CLINICAL HISTORY: CHEST PAIN COMPARISON: None. TECHNIQUE: XR CHEST 1 VIEW 09/27/2024 4:11 AM GAS LOAD DISPATCHER FINDINGS: The heart is mildly enlarged. Lungs are clear without consolidation, atelectasis, mass or edema. Ther e is no pleural effusion. There is no pneumothorax. There are no acute osseous findings. IMPRESSION: Clear lungs. Electronically signed by: Gilberto Fnin MD 09/27/2024 05:43 AM GAS LOAD DISPATCHER RP Due to temporary technical issues with the PACS/[employer] reporting system, reports are being angela d by the in-house radiologist without review as a courtesy to ensure prompt reporting the interpreting radiologist is fully responsible for the content of the report. Transcribed Date/Time: 09/27/2024 6:15 AM
--- NOTE | 2024-09-27 06:28 | ER ---
Nurse's Notes [facility] Name: Lazaro Shipman Age: 79 yrs Sex: Male : 1945 Arrival Date: 09/27/2024 Time: 04:08 Bed 25 Private MD: Diagnosis: Weakness-left arm and left leg Presentation: 09/27 04:10 Chief complaint: Patient states: I have left shoulder pain radiating down the arm and bm8 weak legs after swimming. This started around 1600 yesterday afternoon. Coronavirus screen: Vaccine status: Patient reports receiving the 2nd dose of the covid vaccine. Ebola Screen: Patient negative for fever greater than or equal to 101.5 degrees Fahrenheit, and additional compatible Ebola Virus Disease symptoms Patient denies exposure to infectious person. Patient denies travel to an Ebola-affected area in the 21 days before illness onset. No symptoms or risks identified at this time. Initial Sepsis Screen: Does the patient meet any 2 criteria? No. Patient's initial sepsis screen is negative. Does the patient have a suspected source of infection? No. Patient's initial sepsis screen is negative. Risk Assessment: Do you want to hurt yourself or someone else? Patient reports no desire to harm self or others. Onset of symptoms was September 26, 2024 at 16:00. 04:16 Acuity: KERI 2 bm8 04:16 Method Of Arrival: Ambulatory bm8 Triage Assessment: 04:10 General: Appears in no apparent distress. Behavior is calm, cooperative. Pain: ay Complains of pain in left shoulder. EENT: No signs and/or symptoms were reported regarding the EENT system. Neuro: Level of Consciousness is awake, alert, obeys commands, Oriented to person, place, time, situation, Photograph Enlarger are weak on left Speech is normal, Facial symmetry appears normal. Cardiovascular: Denies chest pain, Capillary refill < 3 seconds. Respiratory: Airway is patent Respiratory effort is even, unlabored, Respiratory pattern is regular, symmetrical. GI: Abdomen is obese. : No signs and/or symptoms were reported regarding the genitourinary system. Derm: No signs and/or symptoms reported regarding the dermatologic system. Musculoskeletal: Reports weakness in left leg and left arm. Historical: - Allergies: 08:16 No Known Allergies; iw - Home Meds: 05:06 Metoprolol Tartrate Oral [Active]; ay - PMHx: 05:06 Hypertension; ay - Immunization history:: Adult Immunizations up to date. - Infectious Disease History:: Denies. - Social history:: Smoking status: Patient denies any tobacco usage or history of. Screenin:10 [facility] ED Fall Risk Assessment (Adult) History of falling in the last 3 months, ay including since admission Yes- physiologic fall (2 pts) Confusion or Disorientation No (0 pts) Intoxicated or Sedated No (0 pts) Impaired Gait Yes (1 pt) Mobility Assist Device Used No (0 pt) Altered Elimination No (0 pt) Score/Fall Risk Level 3 or more points = High Risk Oriented to surroundings, Maintained a safe environment, Educated pt \T\ family on fall prevention, incl call for assistance when getting out of bed, Assessed \T\ reinforced patient's understanding of fall precautions. 04:10 Abuse screen: Denies threats or abuse. Denies injuries from another. Nutritional ay screening: No deficits noted. Tuberculosis screening: No symptoms or risk factors identified. 05:42 [place] Swallow Protocol 3 oz Water Swallow Challenge: Pt able to drink all water without ay stopping, coughing, choking or throat clearing: Yes Result: PASS. Assessment: 04:10 General: Appears in no apparent distress. Behavior is calm, cooperative. ay 04:10 Pain: Complains of pain in right shoulder Pain does not radiate. Pain currently is 1 ay out of 10 on a pain scale. Pain: Pain began about 12 hours ago. Neuro: Level of Consciousness is awake, alert, obeys commands, Oriented to person, place, time, situation, Photograph Enlarger are weak on left Speech is normal, Facial symmetry appears normal. Cardiovascular: Capillary refill < 3 seconds Rhythm is regular. Respiratory: Airway is patent Respiratory effort is even, unlabored, Respiratory pattern is regular, symmetrical. GI: Abdomen is obese, Bowel sounds present X 4 quads. : No signs and/or symptoms were reported regarding the genitourinary system. EENT: No signs and/or symptoms were reported regarding the EENT system. Derm: No signs and/or symptoms reported regarding the dermatologic system. Musculoskeletal: Reports weakness in left arm and left leg. 05:00 Reassessment: Patient appears in no apparent distress at this time. Patient is alert, ay oriented x 3, equal unlabored respirations, skin warm/dry/pink. 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 06:00 Reassessment: Patient appears in no apparent distress at this time. No changes from ay previously documented assessment. 07:20 Reassessment: pt to MRI via wheelchair, awaiting admission orders. iw Vital Signs: 04:45 BP 146 / 73; Pulse 81; Resp 20; Pulse Ox 95% on R/A; ay 05:00 BP 147 / 67; Pulse 81; Resp 18; Pulse Ox 96% on R/A; ay 05:30 BP 162 / 81; Pulse 78; Resp 18 S; Pulse Ox 95% on R/A; ay 06:00 BP 150 / 74; Pulse 80; Resp 17; Pulse Ox 96% on R/A; ay 06:30 BP 152 / 65; Pulse 77; Resp 17 S; Pulse Ox 97% on R/A; ay 08:43 BP 163 / 84; Pulse 72; Resp 14; Pulse Ox 96% ; am7 [facility] Coma Score: 05:06 Eye Response: spontaneous(4). Motor Response: obeys commands(6). Verbal Response: ay oriented(5). Total: 15. NIH Stroke Scale Scores: 04:10 NIHSS Score: 4 ay 04:27 NIHSS Score: 4 cp 05:00 NIHSS Score: 1 ay 06:00 NIHSS Score: 0 ay ED Course: 04:09 Patient arrived in ED. vc1 04:10 Jonny Jaramillo PA is PHCP. cp 04:10 Jonny Avelar MD is Attending Physician. cp 04:10 No provider procedures requiring assistance completed. Initial lab(s) drawn, EKG done, ay by ED staff. Inserted saline lock: 20 gauge. Patient maintains SpO2 saturation greater than 95% on room air. 04:10 Patient has correct armband on for positive identification. Fall risk band placed. Bed ay in low position. Call light in reach. Side rails up X2. Adult w/ patient. Provided Education on: plan of care. monitoring analyst on. Pulse ox on. NIBP on. 04:16 Arm band placed on right wrist. ay 04:27 Missed attempt(s): 20 gauge in left antecubital area. Bleeding controlled, band aid sa1 applied, catheter tip intact. 04:36 CT Stroke Brain w/o Contrast In Process Unspecified. EDMS 04:43 CT Head Angio In Process Unspecified. EDMS 04:43 CT Neck Angio In Process Unspecified. EDMS 04:44 Dae Larson, RN is Primary Nurse. ay 04:48 XRAY Chest (1 view) In Process Unspecified. EDMS 04:57 Basic Metabolic Panel Sent. ay 04:57 LFT's Sent. ay 04:57 Magnesium Sent. ay 04:57 NT PRO-BNP Sent. ay 06:26 Dada Contreras MD is Hospitalizing Provider. cp 06:28 Triage completed. bm8 06:32 Juni Leon is Hospitalizing Provider. cp 07:58 Brain Wo Cont In Process Unspecified. EDMS 08:00 Patient admitted, IV remains in place. intact, No redness/swelling at site. jl7 Administered Medications: 05:44 CANCELLED (Physician Discretion): folic acid1 mg IVPB once ay 05:45 Drug: foLIC Acid PO 1 mg PO once Route: PO; ay 06:35 Follow up: Response: No adverse reaction bm8 06:04 Drug: Aspirin PO Chewable Tablet 162 mg PO once Route: PO; bm8 06:35 Follow up: Response: No adverse reaction bm8 06:04 Drug: Clopidogrel PO 75 mg PO once Route: PO; bm8 06:35 Follow up: Response: No adverse reaction bm8 06:04 Drug: Atorvastatin PO 40 mg PO once; give if patient not taking statin medication bm8 Route: PO; 06:35 Follow up: Response: No adverse reaction bm8 06:15 Drug: NS 0.9% IV 500 ml 500 ml IV at 1 bolus once; to be given as a bolus over 60 ay minutes Volume: 500 ml; Route: IV; Rate: 1 bolus; Site: left forearm; 07:15 Follow up: IV Status: Completed infusion; IV Intake: 500ml jl7 06:16 Drug: Potassium PO Effervescent Tablet 25 mEq PO once; dissolve in 4 ounces of water or ay juice Route: PO; 06:35 Follow up: Response: No adverse reaction bm8 Medication: 05:06 VIS not applicable for this client. ay Intake: 07:15 IV: 500ml; Total: 500ml. jl7 Outcome: 06:27 Decision to Hospitalize by Provider. cp 08:00 Admitted to ER Hold. Please see [facility] for further documentation. jl7 08:00 Condition: stable 08:00 Instructed on the need for admit, Demonstrated understanding of instructions, 15:16 Patient left the ED. jl7 NIH Stroke Scale - NIH Stroke Score Date: 09/27/2024 Time: 04:10 Total Score = 4 10. Dysarthria (speech clarity - read or repeat words) - 0(Normal) 11. Extinction and Inattention (visual/tactile/auditory/spatial/personal) - 0(No abnormality) 1a. Level of Consciousness (LOC) - 0(Alert) 1b. Level of Consciousness (LOC) (Month \T\ Age) - 0(Both) 1c. LOC Commands (Open \T\ Closes Eyes/Senior Property Accountant) - 0(Both) 2. Best Gaze (Lateral Gaze Paresis) - 0(Normal) 3. Visual Field Loss - 0(No visual loss) 4. Facial Palsy - 0(Normal) 5a. Left Arm: Motor (10-second hold) - 2(Drift, some effort against gravity) 5b. Right Arm: Motor (10-second hold) - 0(No drift) 6a. Left Leg: Motor (5-second hold - always test supine) - 2(Drift, some effort against gravity) 6b. Right Leg: Motor (5-second hold - always test supine) - 0(No drift) 7. Limb Ataxia (finger/nose \T\ heel/malik - test with eyes open) - 0(Absent) 8. Sensory Loss (pinprick arms/legs/face) - 0(Normal) 9. Best Language: Aphasia (description/naming/reading) - 0(No aphasia) Initials: ay NIH Stroke Scale - NIH Stroke Score Date: 09/27/2024 Time: 04:27 Total Score = 4 10. Dysarthria (speech clarity - read or repeat words) - 0(Normal) 11. Extinction and Inattention (visual/tactile/auditory/spatial/personal) - 0(No abnormality) 1a. Level of Consciousness (LOC) - 0(Alert) 1b. Level of Consciousness (LOC) (Month \T\ Age) - 0(Both) 1c. LOC Commands (Open \T\ Closes Eyes/Senior Property Accountant) - 0(Both) 2. Best Gaze (Lateral Gaze Paresis) - 0(Normal) 3. Visual Field Loss - 0(No visual loss) 4. Facial Palsy - 0(Normal) 5a. Left Arm: Motor (10-second hold) - 1(Drift) 5b. Right Arm: Motor (10-second hold) - 0(No drift) 6a. Left Leg: Motor (5-second hold - always test supine) - 1(Drift) 6b. Right Leg: Motor (5-second hold - always test supine) - 0(No drift) 7. Limb Ataxia (finger/nose \T\ heel/malik - test with eyes open) - 2(Present in two limbs) 8. Sensory Loss (pinprick arms/legs/face) - 0(Normal) 9. Best Language: Aphasia (description/naming/reading) - 0(No aphasia) Initials: cp NIH Stroke Scale - NIH Stroke Score Date: 09/27/2024 Time: 05:00 Total Score = 1 10. Dysarthria (speech clarity - read or repeat words) - 0(Normal) 11. Extinction and Inattention (visual/tactile/auditory/spatial/personal) - 0(No abnormality) 1a. Level of Consciousness (LOC) - 0(Alert) 1b. Level of Consciousness (LOC) (Month \T\ Age) - 0(Both) 1c. LOC Commands (Open \T\ Closes Eyes/Senior Property Accountant) - 0(Both) 2. Best Gaze (Lateral Gaze Paresis) - 0(Normal) 3. Visual Field Loss - 0(No visual loss) 4. Facial Palsy - 0(Normal) 5a. Left Arm: Motor (10-second hold) - 1(Drift) 5b. Right Arm: Motor (10-second hold) - 0(No drift) 6a. Left Leg: Motor (5-second hold - always test supine) - 0(No drift) 6b. Right Leg: Motor (5-second hold - always test supine) - 0(No drift) 7. Limb Ataxia (finger/nose \T\ heel/malik - test with eyes open) - 0(Absent) 8. Sensory Loss (pinprick arms/legs/face) - 0(Normal) 9. Best Language: Aphasia (description/naming/reading) - 0(No aphasia) Initials: ay NIH Stroke Scale - NIH Stroke Score Date: 09/27/2024 Time: 06:00 Total Score = 0 10. Dysarthria (speech clarity - read or repeat words) - 0(Normal) 11. Extinction and Inattention (visual/tactile/auditory/spatial/personal) - 0(No abnormality) 1a. Level of Consciousness (LOC) - 0(Alert) 1b. Level of Consciousness (LOC) (Month \T\ Age) - 0(Both) 1c. LOC Commands (Open \T\ Closes Eyes/Senior Property Accountant) - 0(Both) 2. Best Gaze (Lateral Gaze Paresis) - 0(Normal) 3. Visual Field Loss - 0(No visual loss) 4. Facial Palsy - 0(Normal) 5a. Left Arm: Motor (10-second hold) - 0(No drift) 5b. Right Arm: Motor (10-second hold) - 0(No drift) 6a. Left Leg: Motor (5-second hold - always test supine) - 0(No drift) 6b. Right Leg: Motor (5-second hold - always test supine) - 0(No drift) 7. Limb Ataxia (finger/nose \T\ heel/malik - test with eyes open) - 0(Absent) 8. Sensory Loss (pinprick arms/legs/face) - 0(Normal) 9. Best Language: Aphasia (description/naming/reading) - 0(No aphasia) Initials: ay Signatures: Dispatcher [employer] EDMS Kylie Nova RN RN iw Jonny Jaramillo PA PA cp Leal, Jahala, RN RN jl7 Jolanta Bear RN RN vc1 Markell Moncada RN RN bm8 Sultan Jackson sa1 Tere Castro am7 Dae Larson RN RN ay Corrections: (The following items were deleted from the chart) 05:47 05:45 [place] Swallow Protocol 3 oz Water Swallow Challenge: Pt able to drink all ay water without stopping, coughing, choking or throat clearing: Yes Result: PASS ay 06:43 04:16 Chief complaint: Patient states: I have left shoulder pain radiating down ay the arm and weak legs after swimming. This started around 1600 yesterday afternoon. bm8 06:44 04:16 Chief complaint: Patient states: I have left shoulder pain radiating down bm8 the arm and weak legs after swimming. This started around 1600 yesterday afternoon. ay 06:44 04:16 Coronavirus screen: Vaccine status: Patient reports receiving the 2nd bm8 dose of the covid vaccine. bm8 06:44 04:16 Ebola Screen: Patient negative for fever greater than or equal to 101.5 bm8 degrees Fahrenheit, and additional compatible Ebola Virus Disease symptoms Patient denies exposure to infectious person. Patient denies travel to an Ebola-affected area in the 21 days before illness onset. No symptoms or risks identified at this time. [facility] 04:16 Initial Sepsis Screen: Does the patient meet any 2 criteria? No. bm8 Patient's initial sepsis screen is negative. Does the patient have a suspected source of infection? No. Patient's initial sepsis screen is negative. [facility] 04:16 Risk Assessment: Do you want to hurt yourself or someone else? Patient 8 reports no desire to harm self or others. [facility] 04:16 Onset of symptoms was September 26, 2024 at 16:00 [place] [id number] 04:16 Method Of Arrival: Ambulatory [place] [id number] 04:16 General: Appears in no apparent distress. Behavior is calm, cooperative, ay ay 04:16 Pain: Complains of pain in left shoulder ay ay 04:16 EENT: No signs and/or symptoms were reported regarding the EENT system. ayay 04:16 Neuro: Level of Consciousness is awake, alert, obeys commands, Oriented ay to person, place, time, situation, Photograph Enlarger are weak on left Speech is normal, Facial symmetry appears normal, 04:16 Cardiovascular: Denies chest pain, Capillary refill < 3 seconds ay ay 04:16 Respiratory: Airway is patent Respiratory effort is even, unlabored, ay Respiratory pattern is regular, symmetrical, 04:16 GI: Abdomen is obese, ay ay 04:16 : No signs and/or symptoms were reported regarding the genitourinary ay system. 04:16 Derm: No signs and/or symptoms reported regarding the dermatologic ay system. 04:16 Musculoskeletal: Reports weakness in left leg and left arm ay ay
--- NOTE | 2024-09-27 06:28 | EDPHYS ---
Physician Documentation [facility] Name: Lazaro Shipman Age: 79 yrs Sex: Male : 1945 Arrival Date: 09/27/2024 Time: 04:08 Bed 25 Private MD: ED Physician Jonny Avelar HPI: 09/27 04:19 This 79 yrs old Male presents to ER via Unassigned with complaints of Left cp Shoulder and Left Arm Pain. 04:19 The patient's problem is reported as weakness, in the left upper extremity, in the left cp lower extremity, pain to left upper arm. Onset: The symptoms/episode began/occurred yesterday at 1600. Duration: The episode is continuous. 04:20 Associated signs and symptoms: Pertinent negatives: abdominal pain, chest pain, cp numbness. Historical: - Allergies: 08:16 No Known Allergies; iw - Home Meds: 05:06 Metoprolol Tartrate Oral [Active]; ay - PMHx: 05:06 Hypertension; ay - Immunization history:: Adult Immunizations up to date. - Infectious Disease History:: Denies. - Social history:: Smoking status: Patient denies any tobacco usage or history of. ROS: 04:25 Constitutional: Negative for body aches, chills, fever, poor PO intake, cp 04:25 Eyes: Negative for injury, pain, redness, and discharge, cp 04:25 Cardiovascular: Negative for chest pain, edema, palpitations, 04:25 Respiratory: Negative for cough, shortness of breath, wheezing, 04:25 Abdomen/GI: Negative for abdominal pain, vomiting, diarrhea, constipation, 04:25 MS/extremity: Positive for pain, of the left upper arm, 04:25 Neuro: Positive for weakness, of the left arm and left leg, Negative for altered mental status, headache, numbness, 04:25 All other systems are negative, Exam: 04:25 Head/Face: Normocephalic, atraumatic. cp 04:25 Constitutional: The patient appears in no acute distress, alert, awake, non-diaphoretic, non-toxic, well developed, well nourished, obese, 04:25 Eyes: Periorbital structures: appear normal, Conjunctiva: normal, no exudate, no injection, Sclera: no appreciated abnormality, Lids and lashes: appear normal, 04:25 ENT: External ear(s): are unremarkable, Nose: is normal, Mouth: Lips: moist, Oral mucosa: pink and intact, moist, Posterior pharynx: Airway: no evidence of obstruction, patent, 04:25 Chest/axilla: Inspection: normal, Palpation: is normal, no crepitus, no tenderness, 04:25 Respiratory: the patient does not display signs of respiratory distress, Respirations: normal, no use of accessory muscles, labored breathing, is not present, 04:57 ECG was reviewed by the Attending Physician. cp 05:55 Radiologist reports: no acute findings cp Vital Signs: 04:45 BP 146 / 73; Pulse 81; Resp 20; Pulse Ox 95% on R/A; ay 05:00 BP 147 / 67; Pulse 81; Resp 18; Pulse Ox 96% on R/A; ay 05:30 BP 162 / 81; Pulse 78; Resp 18 S; Pulse Ox 95% on R/A; ay 06:00 BP 150 / 74; Pulse 80; Resp 17; Pulse Ox 96% on R/A; ay 06:30 BP 152 / 65; Pulse 77; Resp 17 S; Pulse Ox 97% on R/A; ay 08:43 BP 163 / 84; Pulse 72; Resp 14; Pulse Ox 96% ; am7 NIH Stroke Scale Scores: 04:10 NIHSS Score: 4 ay 04:27 NIHSS Score: 4 cp 05:00 NIHSS Score: 1 ay 06:00 NIHSS Score: 0 ay [place] Coma Score: 05:06 Eye Response: spontaneous(4). Motor Response: obeys commands(6). Verbal Response: ay oriented(5). Total: 15. MDM: 04:10 Medical Screening Exam initiated cp 04:30 ED course: patient is not a tnk candidate as onset of symptoms was about 1600 yesterday.cp 05:00 Differential diagnosis: acute myocardial infarction, CVA, TIA, metabolic disorder, drug cp effects. 05:26 ED course: spoke with windshield technician and CT head not read by radiology at this time. cp 06:30 Data reviewed: vital signs, nurses notes, lab test result(s), EKG, radiologic studies, cp CT scan, and as a result, I will admit patient. 06:30 Management of patient was discussed with the following: Hospitalist: Demi STRUCTURAL STEEL PAINTER will cp admit to hospitalist services. I considered the following discharge prescriptions or medication management in the emergency department Medications were administered in the Emergency Department. See MAR. Independent interpretation of the following test(s) in the Emergency Department EKG: See my EKG interpretation above. Care significantly affected by the following chronic conditions: Hypertension. Counseling: I had a detailed discussion with the patient and/or guardian regarding the historical points, exam findings, and any diagnostic results supporting the discharge/admit diagnosis, lab results, radiology results, the need for further work-up and treatment in the hospital. 09/27 04:11 Order name: Basic Metabolic Panel; Complete Time: 05:57 cp 09/27 05:57 Interpretation: Normal except: K 3.3; BUN 23; CRE 1.50; GFR 47. cp 09/27 04:11 Order name: CBC with Diff; Complete Time: 05:02 09/27 05:03 Interpretation: Normal except: MPV 7.0. cp 09/27 04:11 Order name: LFT's; Complete Time: 05:57 cp 09/27 04:11 Order name: Magnesium; Complete Time: 05:57 cp 09/27 04:11 Order name: NT PRO-BNP; Complete Time: 05:57 cp 09/27 04:11 Order name: PT-INR; Complete Time: 05:02 cp 09/27 04:11 Order name: Troponin HS; Complete Time: 05:57 cp 09/27 04:29 Order name: Glucose, Ancillary Testing; Complete Time: 05:02 EDNM 09/27 04:36 Order name: PTT, Activated Partial Thromb; Complete Time: 05:02 EDNM 09/27 08:58 Order name: Thyroid Stimulating Hormone EDNM 09/27 08:58 Order name: CBC with Automated Diff EDMS 09/27 08:58 Order name: CBC with Automated Diff EDMS 09/27 08:58 Order name: Comprehensive Metabolic Panel EDMS 09/27 08:58 Order name: Comprehensive Metabolic Panel EDMS 09/27 08:58 Order name: Lipid Profile EDMS 09/27 08:58 Order name: Lipid Profile EDMS 09/27 08:58 Order name: Magnesium EDMS 09/27 08:58 Order name: Magnesium EDMS 09/27 08:58 Order name: Protime (+INR) EDMS 09/27 08:58 Order name: Protime (+INR) EDMS 09/27 08:58 Order name: Protime (+INR) EDMS 09/27 08:58 Order name: Protime (+INR) EDMS 09/27 08:58 Order name: Protime (+INR) EDMS 09/27 08:58 Order name: Protime (+INR) EDMS 09/27 08:58 Order name: PTT, Activated Partial Thromb EDMS 09/27 08:58 Order name: PTT, Activated Partial Thromb EDMS 09/27 08:58 Order name: PTT, Activated Partial Thromb EDMS 09/27 08:58 Order name: PTT, Activated Partial Thromb EDMS 09/27 08:58 Order name: PTT, Activated Partial Thromb EDMS 09/27 08:58 Order name: PTT, Activated Partial Thromb EDMS 09/27 08:58 Order name: Troponin High Sensitivity EDNM 09/27 08:58 Order name: Troponin High Sensitivity EDNM 09/27 08:58 Order name: Troponin High Sensitivity EDNM 09/27 08:58 Order name: Troponin High Sensitivity EDNM 09/27 10:38 Order name: Thyroid Stimulating Hormone EDNM 09/27 11:48 Order name: Glucose, Ancillary Testing EDNM 09/27 04:11 Order name: XRAY Chest (1 view); Complete Time: 06:16 cp 09/27 04:18 Order name: CT Head Angio; Complete Time: 06:16 cp 09/27 04:18 Order name: CT Neck Angio; Complete Time: 06:16 cp 09/27 04:18 Order name: CT Stroke Brain w/o Contrast; Complete Time: 07:04 cp 09/27 07:55 Order name: Brain Wo Cont EDNM 09/27 08:58 Order name: Echo with Doppler EDNM 09/27 11:08 Order name: RAD EDNM 09/27 08:58 Order name: CONS Physician Consult EDNM 09/27 08:58 Order name: Physical Therapy Consult EDNM 09/27 08:58 Order name: Social Service Consult EDNM 09/27 08:58 Order name: Patient Safety Orders EDNM 09/27 08:58 Order name: Speech Therapy Consult EDNM 09/27 04:11 Order name: Cardiac monitoring; Complete Time: 04:57 cp 09/27 04:11 Order name: EKG - Nurse/Tech; Complete Time: 04:57 cp 09/27 04:11 Order name: IV Saline Lock; Complete Time: 04:57 cp 09/27 04:11 Order name: Labs collected and sent; Complete Time: 04:57 cp 09/27 04:11 Order name: O2 Per Protocol; Complete Time: 04:57 cp 09/27 04:11 Order name: O2 Sat Monitoring; Complete Time: 04:57 cp 09/27 04:18 Order name: Accucheck; Complete Time: 05:44 cp 09/27 04:18 Order name: NPO; Complete Time: 05:44 cp 09/27 04:18 Order name: Stroke Swallow Screen; Complete Time: 05:44 cp EC:57 Rate is 80 beats/min. Rhythm is regular. IN interval is prolonged at 210 msec. QRS cp interval is normal. QT interval is normal. T waves are Inverted in lead aVR. Interpreted by me. Reviewed by me. Administered Medications: 05:44 CANCELLED (Physician Discretion): folic acid1 mg IVPB once ay 05:45 Drug: foLIC Acid PO 1 mg PO once Route: PO; ay 06:35 Follow up: Response: No adverse reaction bm8 06:04 Drug: Aspirin PO Chewable Tablet 162 mg PO once Route: PO; bm8 06:35 Follow up: Response: No adverse reaction bm8 06:04 Drug: Clopidogrel PO 75 mg PO once Route: PO; bm8 06:35 Follow up: Response: No adverse reaction bm8 06:04 Drug: Atorvastatin PO 40 mg PO once; give if patient not taking statin medication bm8 Route: PO; 06:35 Follow up: Response: No adverse reaction bm8 06:15 Drug: NS 0.9% IV 500 ml 500 ml IV at 1 bolus once; to be given as a bolus over 60 ay minutes Volume: 500 ml; Route: IV; Rate: 1 bolus; Site: left forearm; 07:15 Follow up: IV Status: Completed infusion; IV Intake: 500ml jl7 06:16 Drug: Potassium PO Effervescent Tablet 25 mEq PO once; dissolve in 4 ounces of water or ay juice Route: PO; 06:35 Follow up: Response: No adverse reaction bm8 Disposition: 09/28 04:56 Critical Care:. cp 06:46 Co-signature as Attending Physician, Jonny Avelar MD I agree with the assessment and corina plan of care. Disposition Summary: 09/27/24 06:27 Hospitalization Ordered Notes: Hospitalization Status: Inpatient Admission cp Condition: Stable cp Problem: new cp Symptoms: have improved cp Bed/Room Type: Standard cp Provider: Juni Leon(09/27/24 06:32) cp Location: Telemetry/MedSurg (observation)(09/27/24 14:17) bc6 Room Assignment: [facility](09/27/24 14:17) [facility] Diagnosis - Weakness - left arm and left leg cp Forms: - Medication Reconciliation Form cp - SBAR form cp - Leadership Thank You Letter cp Critical care time excluding procedures: 04:56 Critical care time: Bedside Care: 10 minutes, Consultation: 20 minutes, Family cp Intervention: 5 minutes. Total time: 35 minutes NIH Stroke Scale - NIH Stroke Score Date: 09/27/2024 Time: 04:10 Total Score = 4 10. Dysarthria (speech clarity - read or repeat words) - 0(Normal) 11. Extinction and Inattention (visual/tactile/auditory/spatial/personal) - 0(No abnormality) 1a. Level of Consciousness (LOC) - 0(Alert) 1b. Level of Consciousness (LOC) (Month \T\ Age) - 0(Both) 1c. LOC Commands (Open \T\ Closes Eyes/Desktop Support Specialist) - 0(Both) 2. Best Gaze (Lateral Gaze Paresis) - 0(Normal) 3. Visual Field Loss - 0(No visual loss) 4. Facial Palsy - 0(Normal) 5a. Left Arm: Motor (10-second hold) - 2(Drift, some effort against gravity) 5b. Right Arm: Motor (10-second hold) - 0(No drift) 6a. Left Leg: Motor (5-second hold - always test supine) - 2(Drift, some effort against gravity) 6b. Right Leg: Motor (5-second hold - always test supine) - 0(No drift) 7. Limb Ataxia (finger/nose \T\ heel/malik - test with eyes open) - 0(Absent) 8. Sensory Loss (pinprick arms/legs/face) - 0(Normal) 9. Best Language: Aphasia (description/naming/reading) - 0(No aphasia) Initials: ay NIH Stroke Scale - NIH Stroke Score Date: 09/27/2024 Time: 04:27 Total Score = 4 10. Dysarthria (speech clarity - read or repeat words) - 0(Normal) 11. Extinction and Inattention (visual/tactile/auditory/spatial/personal) - 0(No abnormality) 1a. Level of Consciousness (LOC) - 0(Alert) 1b. Level of Consciousness (LOC) (Month \T\ Age) - 0(Both) 1c. LOC Commands (Open \T\ Closes Eyes/Desktop Support Specialist) - 0(Both) 2. Best Gaze (Lateral Gaze Paresis) - 0(Normal) 3. Visual Field Loss - 0(No visual loss) 4. Facial Palsy - 0(Normal) 5a. Left Arm: Motor (10-second hold) - 1(Drift) 5b. Right Arm: Motor (10-second hold) - 0(No drift) 6a. Left Leg: Motor (5-second hold - always test supine) - 1(Drift) 6b. Right Leg: Motor (5-second hold - always test supine) - 0(No drift) 7. Limb Ataxia (finger/nose \T\ heel/malik - test with eyes open) - 2(Present in two limbs) 8. Sensory Loss (pinprick arms/legs/face) - 0(Normal) 9. Best Language: Aphasia (description/naming/reading) - 0(No aphasia) Initials: cp NIH Stroke Scale - NIH Stroke Score Date: 09/27/2024 Time: 05:00 Total Score = 1 10. Dysarthria (speech clarity - read or repeat words) - 0(Normal) 11. Extinction and Inattention (visual/tactile/auditory/spatial/personal) - 0(No abnormality) 1a. Level of Consciousness (LOC) - 0(Alert) 1b. Level of Consciousness (LOC) (Month \T\ Age) - 0(Both) 1c. LOC Commands (Open \T\ Closes Eyes/Desktop Support Specialist) - 0(Both) 2. Best Gaze (Lateral Gaze Paresis) - 0(Normal) 3. Visual Field Loss - 0(No visual loss) 4. Facial Palsy - 0(Normal) 5a. Left Arm: Motor (10-second hold) - 1(Drift) 5b. Right Arm: Motor (10-second hold) - 0(No drift) 6a. Left Leg: Motor (5-second hold - always test supine) - 0(No drift) 6b. Right Leg: Motor (5-second hold - always test supine) - 0(No drift) 7. Limb Ataxia (finger/nose \T\ heel/malik - test with eyes open) - 0(Absent) 8. Sensory Loss (pinprick arms/legs/face) - 0(Normal) 9. Best Language: Aphasia (description/naming/reading) - 0(No aphasia) Initials: ay NIH Stroke Scale - NIH Stroke Score Date: 09/27/2024 Time: 06:00 Total Score = 0 10. Dysarthria (speech clarity - read or repeat words) - 0(Normal) 11. Extinction and Inattention (visual/tactile/auditory/spatial/personal) - 0(No abnormality) 1a. Level of Consciousness (LOC) - 0(Alert) 1b. Level of Consciousness (LOC) (Month \T\ Age) - 0(Both) 1c. LOC Commands (Open \T\ Closes Eyes/Desktop Support Specialist) - 0(Both) 2. Best Gaze (Lateral Gaze Paresis) - 0(Normal) 3. Visual Field Loss - 0(No visual loss) 4. Facial Palsy - 0(Normal) 5a. Left Arm: Motor (10-second hold) - 0(No drift) 5b. Right Arm: Motor (10-second hold) - 0(No drift) 6a. Left Leg: Motor (5-second hold - always test supine) - 0(No drift) 6b. Right Leg: Motor (5-second hold - always test supine) - 0(No drift) 7. Limb Ataxia (finger/nose \T\ heel/malik - test with eyes open) - 0(Absent) 8. Sensory Loss (pinprick arms/legs/face) - 0(Normal) 9. Best Language: Aphasia (description/naming/reading) - 0(No aphasia) Initials: ay Signatures: Dispatcher [employer] EDJonny Harris MD MD cha Waters, Shelly, BUSINESS DEVELOPMENT ASSISTANT-C BUSINESS DEVELOPMENT ASSISTANT-Csnw Kylie Nova, RN RN Jonny Quinonez PA PA cp Villegas, Rebecca rv1 Laine Matos bc6 Markell Moncada RN RN bm8 Dae Larson, Akshat Elizabeth RN, RN jl7 Corrections: (The following items were deleted from the chart) 09/27 04:19 04:19 Neck Angio+CT.RAD.BRZ ordered. EDMS EDMS 04:19 04:19 CT-STROKE BRAIN W/O CONTRAST+CT.RAD.BRZ ordered. EDMS EDMS 04:35 04:19 PTT, ACTIVATED+COAG.LAB.BRZ ordered. EDMS EDMS 05:34 04:19 The patient's problem is reported as weakness, in the left upper cp extremity, in the left lower extremity, cp 05:44 05:27 foLIC Acid IVPB 1 mg IVPB once ordered. cp ay 06:32 06:27 Dada Contreras cp cp 06:58 06:27 Telemetry/MedSurg (Inpatient) cp rv1 06:58 06:27 cp rv1 07:55 07:08 MR STROKE PROTOCOL+MRI.RAD.BRZ ordered. EDMS EDMS 14:17 06:58 [facility] ER HOLD rv1 bc6 14:17 06:58 ERHOLD- rv1 bc6
--- NOTE | 2024-09-27 06:49 | RAD REPORT ---
CLINICAL HISTORY: STROKE ALERT COMPARISON: None. TECHNIQUE: CT HEAD WITHOUT IV CONTRAST on 09/27/2024 4:18 AM WASH TANK TENDER This exam was performed according to our departmental dose-optimization program, which includes autom ated exposure control, adjustment of the mA and/or kV according to patient size and/or use of iterative reconstruction technique. FINDINGS: There is no acute hemorrhage, mass effect or midline shift. Herrera-white differentiation is preserved. There is no hydrocephalus. There is no significant volume loss for age. The calvarium is intact. Orbits and globes are unremarkable. The paranasal sinuses are clear. Mastoid air cells are clear. IMPRESSION: No acute intracranial findings. Electronically signed by: Gilberto Finn MD 09/27/2024 05:43 AM WASH TANK TENDER RP Due to temporary technical issues with the PACS/Flexuspine reporting system, reports are being angela d by the in-house radiologist without review as a courtesy to ensure prompt reporting the interpreting radiologist is fully responsible for the content of the report. Transcribed Date/Time: 09/27/2024 6:49 AM
--- NOTE | 2024-09-27 08:07 | RAD REPORT ---
EXAMINATION: MRI BRAIN WITHOUT CONTRAST CLINICAL INDICATION: Left arm weakness TECHNIQUE: Multiplanar multisequence MR images of the brain were obtained without intravenous contras t. Unless otherwise specified, incidental findings do not require dedicated imaging follow-up. COMPARISON: Head CT September 27, 2024 FINDINGS: Mild abnormal signal within periventricular, deep and subcortical white matter probably ischemic morrow ges secondary to small vessel disease. Diffusion weighted/ADC mapping demonstrates a 10 x 4 mm area of abnormal signal right aspect of the p ons consistent with acute infarction. Ventricles are normal caliber. No extra-axial fluid collection. No fluid within the sinuses/mastoid seen IMPRESSION: Acute right pontine infarction
[2024-09-27] MEDS: FOLIC ACID 1 MG TABLET PO SCH (09:00)
[2024-09-27] MEDS: DOCOSAHEXANOIC AC/EPA 1000 MG PO SCH (09:00)
[2024-09-27] MEDS: MULTIVITAMIN TAB PO SCH (09:00)
[2024-09-27] MEDS: ASPIRIN EC 81 MG TAB PO SCH (09:00)
[2024-09-27] MEDS ORDERED: VALSARTAN 160 MG TAB PO SCH (09:00)
[2024-09-27] MEDS: CLOPIDOGREL 75 MG TABLET PO SCH (09:00)
--- NOTE | 2024-09-27 09:11 | P.HP ---
Certification for Inpatient Patient admitted to: Inpatient With expected LOS: >2 Midnights Patient will require the following post-hospital care: Rehabilitation Practitioner: I am a practitioner with admitting privileges, knowledge of patient current condition, hospital course, and medical plan of care. Services: Services provided to patient in accordance with Admission requirements found in Title 42 Section 412.3 of the Code of Federal Regulations Patient History Date of Service: 09/27/24 Reason for admission: acute right pontine ischemic infarct History of Present Illness: Mr. Coy is a 79-year-old gentleman with a past medical history of hypertension, borderline diabetes, and obesity for which he takes Mounjaro. He swims 1/2 mile daily. He stopped smoking 50+ years ago. Yesterday, 1229, at 1600 he finished his swim and noted his left arm/shoulder was a little painful, his balance was off, and bilateral legs felt weak. He states shortly thereafter he felt as his balance was so abnormal, during the course of the evening he fell an additional 2 times, at 4 AM he attempted ambulation to the restroom and fell again. At this point he called his daughter and they presented to the emergency department. He has had some improvement in left upper and lower strength since arrival per his and family reports. Continues with mild bouncing of left lower extremity and range of motion of left upper arm limited by shoulder pain. Clear speech. He does have some hearing deficits. EKG with sinus rhythm with noted first degree block without ST changes. He is alert, ox3, denies chest pain, shortness of breath, nausea, vomiting or dizziness but feels like he is uncoordinated. he denies medications changes. He rec'd this year's influenza va ccine one week ago. Imaging: CT head negative CTA head and neck negative Last known normal at 1600 09/26/24. On assessment 0815 09/27/24 NIHSS 2 for ataxia in upper and lower left limbs. Gait not tested Sent for MRI stroke protocol at 0815 - returned with acute right pontine ischemic infarct Will continue with evaluation as inpatient. Will allow for permissive hypertension. Allergies No Known Allergies Allergy (Unverified 08/19/20 00:10) Home medications list reviewed: Yes Home Medications: RX: Folic Acid 1 tab PO DAILY 09/27/24 RX: Metoprolol Succinate 1 tab PO DAILY 09/27/24 RX: Valsartan 1 tab PO DAILY 09/27/24 hydroCHLOROthiazide [Hydrochlorothiazide] 1 tab PO DAILY 09/27/24 - Past Medical/Surgical History Has patient received pneumonia vaccine in the past: Yes Diabetic: Yes -: hypertension -: former tobacco (50+ years ago) Psychosocial/ Personal History: lives at home - daughters and mehrdad at bedside. Previously without assistive devices, swims 1/2 mile daily - Family History Family History: Reviewed- Non-Contributory - Social History Smoking Status: Former smoker Alcohol use: No CD- Drugs: No Caffeine use: Yes Place of Residence: Home Review of Systems 10-point ROS is otherwise unremarkable General: Weakness Eyes: Unremarkable ENT: Other ([facility]), Unremarkable Respiratory: Unremarkable Cardiovascular: Unremarkable Gastrointestinal: Unremarkable Genitourinary: Unremarkable Musculoskeletal: Other (Left shoulder pain) Integumentary: Unremarkable Neurological: Weakness, Incoordination, As per HPI Lymphatics: Unremarkable Physical Examination - Vital Signs Blood Pressure: 152/65 Pulse: 77 Respirations: 17 Pulse Ox (%): 97 - Physical Exam General: Alert, In no apparent distress, Oriented x3, Obese HEENT: Atraumatic, Normocephalic Neck: Supple Respiratory: Clear to auscultation bilaterally, Normal air movement Cardiovascular: No edema, Regular rate/rhythm, Normal S1 S2 Capillary refill: <2 Seconds Gastrointestinal: Normal bowel sounds Musculoskeletal: No clubbing, No swelling Integumentary: No rashes Neurological: Normal speech, Sensation intact, Normal affect, Other (asterixis) Lymphatics: No axilla or inguinal lymphadenopathy External genitalia: Deferred Rectal: Deferred - Studies Laboratory Data (last 24 hrs) 09/27/24 09/27/24 09/27/24 04:46 04:30 04:30 WBC 6.30 Hgb 15.4 Hct 45.7 Plt Count 217 PT 12.1 INR 1.08 APTT 33.6 Sodium 137 Potassium 3.3 L BUN 23 H Creatinine 1.50 H Glucose 106 Magnesium 2.0 Total Bilirubin 0.5 AST 27 ALT 29 Alkaline Phosphatase 58 09/27/24 04:18 WBC Hgb Hct Plt Count PT INR APTT Cancelled Sodium Potassium BUN Creatinine Glucose Magnesium Total Bilirubin AST ALT Alkaline Phosphatase Assessment and Plan - Plan Last known normal at 1600 09/26/24. No anticoagulants in the past. Post 1/2mile daily swim, legs felt weak and balance was off: he called his Daughter to bring him to ED after the 4th fall at 0400 09/27/24. He has had some improvement in left upper and lower strength since arrival per his and family reports. Continues with mild bouncing of left lower extremity and range of motion of left upper arm limited by shoulder pain. Acute right pontine ischemic CVA Essential hypertension Borderline diabetes/taking Mounjaro for weight loss Mild CLAIRE with mild hypokalemia Plan: 1. MRI of the brain - acute right pontine ischemic infarct 2. Echocardiogram 3. Antiplatelet therapy and statin therapy 4. Neurology consultation 5. Physical therapy/Occupational Therapy/speech therapy evaluation 6. bedside swallow screen 7. Neurochecks every 4 hours, NIH stroke scale every shift 8. Allow permissive hypertension (hold Valsartan and HCTZ) 9. gentle, short-term, IVF (until speech eval and pt is able to take po) 10. Monitor and trend/replace electrolytes GI/DVT prophylaxis Plan to discharge in: 72 Hours - Advance Directives Does patient have a Living Will: No Does patient have a Durable POA for Healthcare: No - Code Status/Comfort Care Code Status Assessed: Yes (full)
[2024-09-27] MEDS ORDERED: GLUCAGON 1 MG/VIAL IM PRN (09:12)
[2024-09-27] MEDS ORDERED: D10W 125 ML IV PRN (09:12)
[2024-09-27] MEDS ORDERED: DOCUSATE NA 100 MG CAP PO PRN (09:46)
[2024-09-27] MEDS ORDERED: NS KCL 20MEQ 1,000 ML IV ONE (09:54)
[2024-09-27] MEDS: NS KCL 20MEQ 20 MEQ/1,000 ML BAG IV SCH (10:00)
[2024-09-27] MEDS: NA CHLORIDE 0.9% 500 ML IV SCH (10:00)
[2024-09-27 10:33] VITALS: BMI 38.0
[2024-09-27 10:37] LABS: Thyroid Stimulating Hormone 1.07 uIU/mL (0.358-3.740); Troponin High Sensitivity 14.2 pg/mL (<58.9)
[2024-09-27] MEDS ORDERED: METOPROLOL XL 50 MG TAB PO ONE (10:48)
[2024-09-27] MEDS: METOPROLOL XL 100 MG TAB PO ONE (10:58)
--- NOTE | 2024-09-27 11:08 | RAD REPORT ---
Exam:Shoulder Left 2+ Views HISTORY: Left shoulder pain FINDINGS: No fracture or dislocation seen. The humeral head is high riding which may indicate a chronic rotator cuff tear
[2024-09-27] MEDS: INSULIN REGULAR (HUMAN) 100 UNIT/ML SQ SCH (11:30)
[2024-09-27] MEDS ORDERED: INSULIN REGULAR (HUMAN) 100 UNIT/ML SQ SCH (12:00)
[2024-09-27] MEDS ORDERED: HYDROCODONE/APAP 7.5/325 MG TAB ONE (12:55)
[2024-09-27] MEDS: HYDROCODONE/APAP 7.5/325 MG TAB PO PRN (12:59)
[2024-09-27] MEDS: ATORVASTATIN 80 MG TAB PO SCH (20:47)
--- NOTE | 2024-09-27 23:25 | CON ---
Reason For Consultation: Acute right pontine lacunar infarct. History Of Present Illness: Mr. Shipman is a 79-year-old right-handed patient with history of hypertens ion and dyslipidemia, who is in very good physical condition in terms of daily swimming about half a mile for perhaps around 30 or more years. Blood pressures, systolics around 140s. He was not on asp irin daily, who per his daughter and family members in the room said on 09/26 at 6 p.m., he had finis hed his swim, then noted some left arm and shoulder pain and weakness, speech seemed to be a little o ff, balance was off, tending to fall towards the left. Did not immediately seek medical attention, w ent to bed, then woke up around 4 in the morning and was unable to ambulate, fell, and called his nam ghter and was brought to [facility]. Head CT scan showed no acute ischemic or hemorrhagic c hange. Given the patient had delay in arriving in the emergency room, he was out of the window for i ntravenous therapy. CT angiogram of the head and neck showed no large ischemic disease. He was pj kimberly with dual-antiplatelet therapy, permissive hypertension, placed on high-dose statin along with fo lic acid, and electrolytes were replaced. He did receive also Protonix for GE reflux. The patient s aid his symptoms fluctuated, but he seemed to improve actually moderately. The following day, which is today, brain MRI was done. The study identified a 4 x 4 mm area of acute infarct in the right asp ect of the janet. His chest x-ray done, also ordered today, showed clear lungs. No significant abnor malities. Blood work: His complete blood count with differential unremarkable. INR 1.08. His comp rehensive metabolic panel remarkable for mild dehydration with creatinine 1.5, BUN 23. His potassium was low at 3.3. Glucose ranged 83 to 106. Calcium 8.9. Magnesium 2.0. AST 27, ALT 29. TSH 1.07. His troponin is normal. He was seen by the physical therapy service and able to walk 50 feet twice with a rolling walker, did have some tendency to fall to the left, was unsteady and only took 5 step s without an assistive device. Again very unsteady and did require redirecting. At the [facility], he does need significant help with in and out of bed, mobilization, and ADLs. He was seen by the speech service and cleared. He has no evidence of any aspiration. No issues of comprehension and ex pression. Problem solving found to be intact. Past Medical History: As noted, history of hypertension, not taking aspirin and dyslipidemia. No di abetes mellitus. Family History: Positive for myocardial infarction in Father. Social History: No current alcohol, tobacco, or IV drug use. Did smoke in the distant past. He exe rcises regularly, swimming one-half a mile daily. Allergies: NO KNOWN DRUG ALLERGIES. Current Medications: Valsartan daily, metoprolol daily, folic acid daily, hydrochlorothiazide. Review of Systems: As noted, left-sided weakness, incoordination. Difficulty with balance, gait. Tendency to fall. Lacy btle weakness on the left side, upper and lower extremities. Physical Examination: Vital Signs: Blood pressure up to 193/87, pulse 69, respiratory rate of 16 to 20, temperature 97.5, oxygen saturation 93%. General: Mr. Shipman is lying in bed. Family at bedside. HEENT: He is normocephalic, atraumatic. Sclerae anicteric. Oropharynx pink and moist. Neck: Supple. Chest: Clear. Heart: Regular. Extremities: Show no significant cyanosis, clubbing, or edema. He does have class 2 ; BMI of 38 with weight 250 pounds, height 5 feet 8 inches. Neurological: Mild incoordination in the left upper and lower extremities with dysmetria noted. Ten dency to fall to the left when ambulating. Otherwise, strength is slightly less on the left compared to the right side. No other findings on exam. Assessment: Mr. Shipman is a 79-year-old patient with a right pontine stroke with some deficits in the left upper and lower extremities in terms of incoordination, strength and sensation being decreased, some tendency to fall to the left with ambulation, and loses balance. Speech has been clear. His co morbidities are hypertension and his lipid panel is pending. Blood sugars are in actually good shape . No significant abnormalities noted there. Does have class 2 obesity, which is a stroke risk facto r and was dehydrated on admission. Plan: Aspirin 81 mg daily, Plavix 75 mg daily, Lipitor 80 mg at bedtime. Permissive hypertension, b ut blood pressures may be kept below 170 if possible with IV medicines as needed. Fish oil and folic acid, okay to continue. He does have GE reflux medication. Electrolyte imbalance, which is low pot assium, is being replaced. He is also being considered for inpatient rehabilitation and tomorrow is New 's Day and requires prior authorization at Medicare, and hopefully will be able to go to the inpatient rehabilitation unit on , which will be September 29, 2024. The patient will be follow ed in inpatient rehab. SEVERO/BUDDY Voice ID: [id number] Report ID: [id number]
[2024-09-28] MEDS: METOPROLOL XL 100 MG TAB PO SCH (05:13)
[2024-09-28 06:36] LABS: Absolute Eosinophils 0.2 K/uL (0-0.5); Absolute Monocytes 0.6 K/uL (0.1-1.3); Absolute Neutrophil 4.4 K/uL (1.8-8.0); Basophils % 0.7 % (0-1.3); Eosinophils % 2.7 % (0-4.4); Hemoglobin 14.8 g/dL (13.6-17.9); Lymphocytes % 16.4 % (15.3-44.8); MCH 30.8 pg (27.0-35.0); MCHC 33.6 g/dL (32.0-36.0); MCV 91.5 fL (80-100); MPV 6.8 fL (7.6-11.3); Monocytes % 9.7 % (3.3-12.3); Neutrophils % 70.5 % (41.7-73.7); Nucleated Red Blood Cells % 0.1 % (0-0); Platelets 197 thou/uL (152-406); RBC Red Blood Cell Count 4.81 M/uL (4.33-5.43); Red Cell Distribution Width 13.2 % (12.1-15.2)
[2024-09-28 06:40] LABS: PT Prothrombin Time 12.8 SECONDS (9.4-12.5); PTT, Activated Partial Thromb 33.7 SECONDS (24.3-36.9); Protime INR 1.15
[2024-09-28 07:02] LABS: Albumin 3.1 g/dL (3.4-5.0); Albumin/Globulin Ratio 0.9 (1.1-1.8); Anion Gap 8.8 mEq/L (5.0-15.0); Bilirubin Total 0.8 mg/dL (0.2-1.0); Globulin 3.4 g/dL (2.3-3.5); Magnesium 1.9 mg/dL (1.6-2.4); Potassium 3.8 mEq/L (3.5-5.1); Protein, Total 6.5 g/dL (6.4-8.2)
[2024-09-28] MEDS: PANTOPRAZOLE 40MG TABLET PO SCH (08:52)
--- NOTE | 2024-09-28 10:31 | P.PN ---
Date of Service: 09/28/24 Subjective Feeling better, no overnight events Review of Systems 10-point ROS is otherwise unremarkable General: Unremarkable Eyes: Unremarkable ENT: Unremarkable Respiratory: Unremarkable Cardiovascular: Unremarkable Gastrointestinal: Unremarkable Musculoskeletal: Unremarkable Integumentary: Unremarkable Neurological: Left-sided uncoordination Lymphatics: Unremarkable Vitals Reviewed Permissive hypertension with goal of systolic blood pressure less than 160 - currently stable Physical Exam General: Alert, Oriented x3, Cooperative, no distress HEENT: Atraumatic, Normocephalic Neck: Supple Respiratory: Clear to auscultation bilaterally, Normal air movement Cardiovascular: No edema, Regular rate/rhythm, Normal S1 S2 Capillary refill: <2 Seconds Gastrointestinal: Soft and benign, without hepatosplenomegaly Musculoskeletal: No clubbing, No swelling Integumentary: No rashes, No breakdown Neurological: Normal speech, decreased strength to left upper and lower at 4/5 x4 extr, deysmetria to upper and lower left. Normal affect Lymphatics: No axilla or inguinal lymphadenopathy Assessment and Plan - Plan Last known normal at 1600 09/26/24. No anticoagulants in the past. Post 1/2mile daily swim, legs felt weak and balance was off: he called his Daughter to bring him to ED after the 4th fall at 0400 09/27/24. He has had some improvement in left upper and lower strength since arrival per his and family reports. Continues with mild bouncing of left lower extremity and range of motion of left upper arm limited by shoulder pain. Acute right pontine ischemic CVA Essential hypertension Borderline diabetes/taking Mounjaro for weight loss Mild CLAIRE with mild hypokalemia Plan: 1. MRI of the brain - acute right pontine ischemic infarct 2. Echocardiogram 3. Antiplatelet therapy and statin therapy 4. Neurology consultation 5. Physical therapy/Occupational Therapy/speech therapy evaluation 6. bedside swallow screen 7. Neurochecks every 4 hours, NIH stroke scale every shift 8. Allow permissive hypertension (hold Valsartan and HCTZ) 9. gentle, short-term, IVF (until speech eval and pt is able to take po) 10. Monitor and trend/replace electrolytes GI/DVT prophylaxis Plan to discharge in: 24-48 hours - awaiting insurance auth for IPR - Advance Directives Does patient have a Living Will: No Does patient have a Durable POA for Healthcare: No - Code Status/Comfort Care Code Status Assessed: Yes (full)
--- NOTE | 2024-09-28 15:43 | P.DS ---
Admission Date: 09/27/24 Discharge Date: 10/02/24 Disposition: TRANSFER TO INPATIENT REHAB Discharge Condition: GOOD Reason for Admission: acute right pontine ischemic infarct Consultations: Dr. May Brief History of Present Illness: Mr. Shipmna is a 79-year-old gentleman with a past medical history of hypertension, borderline diabetes, and obesity for which he takes Mounjaro. He swims 1/2 mile daily. He stopped smoking 50+ years ago. Yesterday, 1230, 24 at 1600 he finished his swim and noted his left arm/shoulder was a little painful, his balance was off, and bilateral legs felt weak. He states shortly thereafter he felt as his balance was so abnormal, during the course of the evening he fell an additional 2 times, at 4 AM he attempted ambulation to the restroom and fell again. At this point he called his daughter and they presented to the emergency department. He has had some improvement in left upper and lower strength since arrival per his and family reports. Continues with mild bouncing of left lower extremity and range of motion of left upper arm limited by shoulder pain. Clear speech. He does have some hearing deficits. EKG with sinus rhythm with noted first degree block without ST changes. He is alert, ox3, denies chest pain, shortness of breath, nausea, vomiting or dizziness but feels like he is uncoordinated. he denies medications changes. He rec'd this year's influenza vaccine one week ago. Imaging: CT head negative CTA head and neck negative Last known normal at 1600 09/26/24. On assessment 0815 09/27/24 NIHSS 2 for ataxia in upper and lower left limbs. Gait not tested Sent for MRI stroke protocol at 0815 - returned with acute right pontine ischemic infarct Will continue with evaluation as inpatient. Will allow for permissive hypertension. Hospital Course: Mr. Shipman still feels uncoordinated on the left upper and to a lesser extent lower extremities; however, is working hard with PT/OT. He has no mentation or swallowing issues. Eating well. IV fluids have been discontinued. He continues to have mild weakness to the left upper and left lower extremity with decreased coordination; however, he is improving since admission. He is highly motivated to get to inpatient rehab. Vital Signs/Physical Exam: Temp Pulse Resp BP Pulse Ox 97.7 F 73 16 201/92 H 95 09/28/24 12:00 09/28/24 12:00 09/28/24 12:00 09/28/24 12:00 09/28/24 12:00 Other Physical/Emotional Findings: - Physical Exam. General: Alert, Oriented x3, Cooperative, no distress. HEENT: Atraumatic, Normocephalic. Neck: Supple. Respiratory: Clear to auscultation bilaterally, Normal air movement. Cardiovascular: No edema, Regular rate/rhythm, Normal S1 S2. Capillary refill: <2 Seconds. Gastrointestinal: Soft and benign, without hepatosplenomegaly. Musculoskeletal: No clubbing, No swelling. Integumentary: No rashes, No breakdown. Neurological: Normal gait with walker around the room and to bathroom, left leg feels like it will give out per report, normal speech, Normal strength at 5/5 x 2 extr, left upper and lower extremity with 4/5 strength , left upper extremity with some continued incoordination but it has been improving , left lower extremity coordination issues mild/subtle, cranial nerves 3-12 intact, Normal affect. Lymphatics: No axilla or inguinal lymphadenopathy Laboratory Data at Discharge: WBC 6.30 thou/uL (4.3-10.9) 09/28/24 06:03 Hgb 14.8 g/dL (13.6-17.9) 09/28/24 06:03 Hct 44.0 % (39.6-49.0) 09/28/24 06:03 Plt Count 197 thou/uL (152-406) 09/28/24 06:03 PT 12.8 SECONDS (9.4-12.5) H 09/28/24 06:03 INR 1.15 09/28/24 06:03 APTT 33.7 SECONDS (24.3-36.9) 09/28/24 06:03 Sodium 138 mEq/L (136-145) 09/28/24 06:03 Potassium 3.8 mEq/L (3.5-5.1) D 09/28/24 06:03 BUN 16 mg/dL (7-18) 09/28/24 06:03 Creatinine 1.01 mg/dL (0.70-1.30) 09/28/24 06:03 Glucose 101 mg/dL (74-106) 09/28/24 06:03 Magnesium 1.9 mg/dL (1.6-2.4) 09/28/24 06:03 Total Bilirubin 0.8 mg/dL (0.2-1.0) 09/28/24 06:03 AST 28 U/L (15-37) 09/28/24 06:03 ALT 26 U/L (16-61) 09/28/24 06:03 Alkaline Phosphatase 56 U/L (45-117) 09/28/24 06:03 Triglycerides 144 mg/dL (<150) 09/28/24 06:03 Cholesterol 147 mg/dL (<200) 09/28/24 06:03 HDL Cholesterol 37 mg/dL (40-60) L 09/28/24 06:03 Cholesterol/HDL Ratio 3.97 09/28/24 06:03 Home Medications: Folic Acid 1 tab PO DAILY 09/27/24 Metoprolol Succinate 1 tab PO DAILY 09/27/24 Valsartan 1 tab PO DAILY 09/27/24 hydroCHLOROthiazide [Hydrochlorothiazide] 1 tab PO DAILY 09/27/24 Atorvastatin Calcium [Lipitor] 80 mg PO BEDTIME #90 tab 09/28/24 Clopidogrel Bisulfate [Plavix*] 75 mg PO DAILY #90 tab 09/28/24 Docusate [Colace Cap*] 100 mg PO DAILY PRN #90 cap 09/28/24 Pantoprazole [Protonix Tab*] 40 mg PO DAILY #30 tab 09/28/24 New Medications: Docusate [Colace Cap*] 100 mg PO DAILY PRN #90 cap PRN Reason: Constipation Atorvastatin Calcium [Lipitor] 80 mg PO BEDTIME #90 tab Clopidogrel Bisulfate [Plavix*] 75 mg PO DAILY #90 tab Pantoprazole [Protonix Tab*] 40 mg PO DAILY #30 tab Physician Discharge Instructions: Continue current medications. Enjoy inpatient rehab. Diet: AHA Activity: Fall precautions Followup: Jaelyn Diaz FNP [Primary Care Provider] - Eduardo May MD [ASSOCIATE-ACTIVE - CAN ADMIT] -
[2024-09-29 06:21] LABS: PT Prothrombin Time 12.6 SECONDS (9.4-12.5); PTT, Activated Partial Thromb 32.3 SECONDS (24.3-36.9); Protime INR 1.13
[2024-09-29 06:23] LABS: Absolute Eosinophils 0.2 K/uL (0-0.5); Absolute Lymphocytes (CBC) 1.1 K/uL (0.7-4.9); Absolute Monocytes 0.7 K/uL (0.1-1.3); Absolute Neutrophil 5.7 K/uL (1.8-8.0); Basophils % 0.5 % (0-1.3); Eosinophils % 2.1 % (0-4.4); Hemoglobin 15.2 g/dL (13.6-17.9); Lymphocytes % 14.5 % (15.3-44.8); MCH 31.4 pg (27.0-35.0); MCHC 34.5 g/dL (32.0-36.0); Monocytes % 9.2 % (3.3-12.3); Neutrophils % 73.7 % (41.7-73.7); Platelets 213 thou/uL (152-406); RBC Red Blood Cell Count 4.84 M/uL (4.33-5.43); Red Cell Distribution Width 12.9 % (12.1-15.2)
[2024-09-29 06:35] LABS: Albumin 3.3 g/dL (3.4-5.0); Albumin/Globulin Ratio 0.9 (1.1-1.8); Globulin 3.8 g/dL (2.3-3.5); Magnesium 2.2 mg/dL (1.6-2.4); Protein, Total 7.1 g/dL (6.4-8.2)
--- NOTE | 2024-09-29 07:13 | P.PN ---
Date of Service: 09/29/24 Subjective Feeling better, no overnight events Review of Systems 10-point ROS is otherwise unremarkable General: Unremarkable Eyes: Unremarkable ENT: Unremarkable Respiratory: Unremarkable Cardiovascular: Unremarkable Gastrointestinal: Unremarkable Musculoskeletal: Unremarkable Integumentary: Unremarkable Neurological: Left-sided uncoordination Lymphatics: Unremarkable Vitals Reviewed Permissive hypertension with goal of systolic blood pressure less than 160 - pressures are not optimal overnight. Will add Valsartan back to pt's med list Physical Exam General: Alert, Oriented x3, Cooperative, no distress HEENT: Atraumatic, Normocephalic Neck: Supple Respiratory: Clear to auscultation bilaterally, Normal air movement Cardiovascular: No edema, Regular rate/rhythm, Normal S1 S2 Capillary refill: <2 Seconds Gastrointestinal: Soft and benign, without hepatosplenomegaly Musculoskeletal: No clubbing, No swelling Integumentary: No rashes, No breakdown Neurological: Normal speech, decreased strength to left upper and lower at 4/5 to LLE and 3/5 to LUE, deysmetria to upper and lower left. Normal affect Lymphatics: No axilla or inguinal lymphadenopathy Assessment and Plan - Plan Last known normal at 1600 09/26/24. No anticoagulants in the past. Post 1/2mile daily swim, legs felt weak and balance was off: he called his Daughter to bring him to ED after the 4th fall at 0400 09/27/24. He has had some improvement in left upper and lower strength since arrival per his and family reports. Continues with mild bouncing of left lower extremity and range of motion of left upper arm limited by shoulder pain. Acute right pontine ischemic CVA Essential hypertension Borderline diabetes/taking Mounjaro for weight loss Mild CLAIRE with mild hypokalemia Plan: 1. MRI of the brain - acute right pontine ischemic infarct 2. Echocardiogram 3. Antiplatelet therapy and statin therapy 4. Neurology consultation - Dr. May is following 5. Physical therapy/Occupational Therapy/speech therapy evaluation 6. bedside swallow screen - passed on admission 7. Neurochecks every 4 hours, NIH stroke scale every shift 8. Allow permissive hypertension (hold Valsartan and HCTZ) 9. gentle, short-term, IVF (until speech eval and pt is able to take po) 10. Monitor and trend/replace electrolytes GI/DVT prophylaxis Plan to discharge in: 24-48 hours - awaiting insurance auth for IPR Will add Valsartan back to pt's medications Pt is not diabetic, glucose monitoring by fingerstick has been discontinued. A1C without evidence of DM Ambulating with walker to bathroom per RN report overnight. - Advance Directives Does patient have a Living Will: No Does patient have a Durable POA for Healthcare: No - Code Status/Comfort Care Code Status Assessed: Yes (full)
[2024-09-29] MEDS: VALSARTAN 80 MG TAB PO SCH (08:01)
[2024-09-30 06:34] LABS: Absolute Basophils 0.1 K/uL (0-0.5); Absolute Eosinophils 0.1 K/uL (0-0.5); Absolute Lymphocytes (CBC) 1.1 K/uL (0.7-4.9); Absolute Monocytes 0.6 K/uL (0.1-1.3); Absolute Neutrophil 4.6 K/uL (1.8-8.0); Basophils % 0.8 % (0-1.3); Hematocrit 42.4 % (39.6-49.0); Hemoglobin 14.8 g/dL (13.6-17.9); Lymphocytes % 16.6 % (15.3-44.8); MCH 31.6 pg (27.0-35.0); MCHC 34.9 g/dL (32.0-36.0); MCV 90.3 fL (80-100); MPV 6.7 fL (7.6-11.3); Monocytes % 9.5 % (3.3-12.3); Neutrophils % 71.1 % (41.7-73.7); Nucleated Red Blood Cells % 0.1 % (0-0); Platelets 212 thou/uL (152-406); Red Cell Distribution Width 12.9 % (12.1-15.2)
[2024-09-30 06:53] LABS: PT Prothrombin Time 12.5 SECONDS (9.4-12.5); PTT, Activated Partial Thromb 32.9 SECONDS (24.3-36.9); Protime INR 1.12
[2024-09-30 06:57] LABS: Albumin 3.3 g/dL (3.4-5.0); Albumin/Globulin Ratio 0.9 (1.1-1.8); Anion Gap 7.8 mEq/L (5.0-15.0); Bilirubin Total 1.1 mg/dL (0.2-1.0); Globulin 3.7 g/dL (2.3-3.5); Magnesium 2.2 mg/dL (1.6-2.4); Potassium 3.8 mEq/L (3.5-5.1)
--- NOTE | 2024-09-30 07:59 | ECHO ---
HEIGHT: 5 ft 8 in WEIGHT: 250 lb 0 oz DATE OF STUDY: 09/29/[address]: Demi Kay BENCH PATTERNMAKER METAL-BC 2-DIMENSIONAL: YES M.MODE: YES DOPPLER: YES COLOR FLOW: YES TDS: NO PORTABLE: YES DEFINITY: NO BUBBLE STUDY: NO DIAGNOSIS: STROKE CARDIAC HISTORY: CATHERIZATION: SURGERY: PROSTHETIC VALVE: PACEMAKER: MEASUREMENTS (cm) DIASTOLIC (NORMALS) SYSTOLIC (NORMALS) IVSd 1.1 (0.6-1.2) LA Diam 3.2 (1.9-4.0) LVEF 67% LVIDd 4.4 (3.5-5.7) LVIDs 2.8 (2.0-3.5) %FS 37% LVPWd 1.1 (0.6-1.2) Ao Diam 2.8 (2.0-3.7) 2 DIMENSIONAL ASSESSMENT: RIGHT ATRIUM: NORMAL LEFT ATRIUM: NORMAL RIGHT VENTRICLE: NORMAL LEFT VENTRICLE: NORMAL TRICUSPID VALVE: TRACE OF TRICUSPID REGURGITATION MITRAL VALVE: NORMAL PULMONIC VALVE: NORMAL AORTIC VALVE: CALCIFIED PERICARDIAL EFFUSION: NONE AORTIC ROOT: NORMAL LEFT VENTRICULAR WALL MOTION: NORMAL. DOPPLER/COLOR FLOW: NORMAL. COMMENTS: 1. NORMAL LEFT VENTRICULAR SYSTOLIC EJECTION FRACTION, 60-65%, NORMAL WALL MOTION. 2. NORMAL DIASTOLIC FUNCTION. 3. CALCIFIED AORTIC VALVE WITH MODERATE AORTIC STENOSIS (AORTIC VALVE AREA 1.2 CENTIMETERS SQUARED, MEAN GRADIENT 26mmHg). TECHNOLOGIST: BETY REIS
[2024-09-30] MEDS: POTASSIUM CL SA 10 MEQ TAB PO ONE (09:17)
--- NOTE | 2024-09-30 12:50 | EKG ---
Test Date: 2024-09-27 Test Time: 04:53:08 Advertising Project Manager: RADHA MEASUREMENT RESULTS: Intervals: Rate: 80 OH: 210 QRSD: 92 QT: 398 QTc: 459 [place]: P: 11 OH: 210 QRS: 28 T: 45 INTERPRETIVE STATEMENTS: Sinus rhythm with 1st degree AV block Otherwise normal ECG Compared to ECG 07/03/1997 10:30:00 First degree AV block now present Left ventricular hypertrophy no longer present Electronically Signed On 09-30-24 12:48:30 COMMUNICATIONS OFFICER by Darryl Gnozalez
--- NOTE | 2024-09-30 17:22 | P.PN ---
Date of Service: 09/30/24 Subjective no overnight events Review of Systems 10-point ROS is otherwise unremarkable General: Unremarkable Eyes: Unremarkable ENT: Unremarkable Respiratory: Unremarkable Cardiovascular: Unremarkable Gastrointestinal: Unremarkable Musculoskeletal: Unremarkable Integumentary: Unremarkable Neurological: Left-sided uncoordination Lymphatics: Unremarkable Vitals Reviewed Permissive hypertension with goal of systolic blood pressure less than 160 - pressures are not optimal overnight. Will add Valsartan back to pt's med list improved BP control 09/30/24 Physical Exam General: Alert, Oriented x3, Cooperative, no distress HEENT: Atraumatic, Normocephalic Neck: Supple Respiratory: Clear to auscultation bilaterally, Normal air movement Cardiovascular: No edema, Regular rate/rhythm, Normal S1 S2 Capillary refill: <2 Seconds Gastrointestinal: Soft and benign, without hepatosplenomegaly Musculoskeletal: No clubbing, No swelling Integumentary: No rashes, No breakdown Neurological: Normal speech, decreased strength to left upper and lower at 4/5 to LLE and 3/5 to LUE, deysmetria to upper and to a lesser extent lower left. Normal affect Lymphatics: No axilla or inguinal lymphadenopathy Assessment and Plan - Plan Last known normal at 1600 09/26/24. No anticoagulants in the past. Post 1/2mile daily swim, legs felt weak and balance was off: he called his Daughter to bring him to ED after the 4th fall at 0400 09/27/24. He has had some improvement in left upper and lower strength since arrival per his and family reports. Con tinues with mild bouncing of left lower extremity and range of motion of left upper arm limited by shoulder pain. Acute right pontine ischemic CVA Essential hypertension Borderline diabetes/taking Mounjaro for weight loss Mild CLAIRE with mild hypokalemia Plan: 1. MRI of the brain - acute right pontine ischemic infarct 2. Echocardiogram 3. Antiplatelet therapy and statin therapy 4. Neurology consultation - Dr. May is following 5. Physical therapy/Occupational Therapy/speech therapy evaluation 6. bedside swallow screen - passed on admission 7. Neurochecks every 4 hours, NIH stroke scale every shift 8. Allow permissive hypertension (hold Valsartan and HCTZ) 9. gentle, short-term, IVF (until speech eval and pt is able to take po) 10. Monitor and trend/replace electrolytes GI/DVT prophylaxis Plan to discharge in: 24-48 hours - awaiting insurance auth for IPR Will add Valsartan back to pt's medications - bp control improved Pt is not diabetic, glucose monitoring by fingerstick has been discontinued. A1C without evidence of DM Ambulating with walker to bathroom per RN report overnight. Awaiting insurance auth for IPR continues to work well with PT - Advance Directives Does patient have a Living Will: No Does patient have a Durable POA for Healthcare: No - Code Status/Comfort Care Code Status Assessed: Yes (full)
[2024-10-01 06:39] LABS: PT Prothrombin Time 13.2 SECONDS (9.4-12.5); Protime INR 1.18
[2024-10-01 06:45] LABS: PTT, Activated Partial Thromb 31.9 SECONDS (24.3-36.9)
--- NOTE | 2024-10-01 09:16 | P.PN ---
Date of Service: 10/01/24 Subjective no overnight events, mild improvement of left upper arm movement/coordination Review of Systems 10-point ROS is otherwise unremarkable General: Unremarkable Eyes: Unremarkable ENT: Unremarkable Respiratory: Unremarkable Cardiovascular: Unremarkable Gastrointestinal: Unremarkable Musculoskeletal: Unremarkable Integumentary: Unremarkable Neurological: Left-sided uncoordination Lymphatics: Unremarkable Vitals Reviewed Permissive hypertension with goal of systolic blood pressure less than 160 - pressures are not optimal overnight. Will add Valsartan back to pt's med list improved BP control 09/30/24 maintained 10/01/24 Physical Exam General: Alert, Oriented x3, Cooperative, no distress HEENT: Atraumatic, Normocephalic Neck: Supple Respiratory: Clear to auscultation bilaterally, Normal air movement Cardiovascular: No edema, Regular rate/rhythm, Normal S1 S2 Capillary refill: <2 Seconds Gastrointestinal: Soft and benign, without hepatosplenomegaly Musculoskeletal: No clubbing, No swelling Integumentary: No rashes, No breakdown Neurological: Normal speech, decreased strength to left upper and lower at 4/5 to LLE and 3/5 to LUE, improving dysmetria to upper and to a lesser extent lower left. Normal affect Lymphatics: No axilla or inguinal lymphadenopathy Assessment and Plan - Plan Last known normal at 1600 09/26/24. No anticoagulants in the past. Post 1/2mile daily swim, legs felt weak and balance was off: he called his Daughter to bring him to ED after the 4th fall at 0400 09/27/24. He has had some improvement in left upper and lower strength since arrival per his and family reports. Continues with mild bouncing of left lower extremity and range of motion of left upper arm limited by shoulder pain. Acute right pontine ischemic CVA Essential hypertension Borderline diabetes/taking Mounjaro for weight loss Mild CLAIRE with mild hypokalemia Plan: 1. MRI of the brain - acute right pontine ischemic infarct 2. Echocardiogram 3. Antiplatelet therapy and statin therapy 4. Neurology consultation - Dr. May is following 5. Physical therapy/Occupational Therapy/speech therapy evaluation 6. bedside swallow screen - passed on admission 7. Neurochecks every 4 hours, NIH stroke scale every shift 8. Allow permissive hypertension (hold Valsartan and HCTZ) 9. gentle, short-term, IVF (until speech eval and pt is able to take po) 10. Monitor and trend/replace electrolytes GI/DVT prophylaxis Plan to discharge in: 24-48 hours - awaiting insurance auth for IPR Will add Valsartan back to pt's medications - bp control improved Pt is not diabetic, glucose monitoring by fingerstick has been discontinued. A1C without evidence of DM Ambulating with walker to bathroom per RN report overnight. Awaiting insurance auth for IPR continues to work well with PT able to transfer to inpatient rehab tomorrow 10/02/24 - Advance Directives Does patient have a Living Will: No Does patient have a Durable POA for Healthcare: No - Code Status/Comfort Care Code Status Assessed: Yes (full)
[2024-10-01 23:05] VITALS: O2SAT 95
[2024-10-02 07:08] LABS: PT Prothrombin Time 13.4 SECONDS (9.4-12.5); PTT, Activated Partial Thromb 31.5 SECONDS (24.3-36.9); Protime INR 1.2
[2024-10-02 12:03] VITALS: BP 155/83; TEMP 97.9
== END 2024-10-02 15:40 | DRG 65 ==
LOC: ER 04:08 → ERHOLD 08:45 → 4TH 14:28
PROVIDERS: ADMIT Internal Medicine; ATTEND Internal Medicine
DX: I63.9 Cerebral infarction, unspecified (principal); G81.94 Hemiplegia, unspecified affecting left nondominant side; N17.9 Acute kidney failure, unspecified; I10 Essential (primary) hypertension; E87.6 Hypokalemia; E78.5 Hyperlipidemia, unspecified; E66.9 Obesity, unspecified; R29.6 Repeated falls; R29.704 NIHSS score 4; Z91.81 History of falling; Z68.38 Body mass index [BMI] 38.0-38.9, adult; Z79.899 Other long term (current) drug therapy; Z87.891 Personal history of nicotine dependence
CPT/HCPCS: 36415; 70450; 70496; 70498; 70551; 71045; 80048; 80053; 80061; 80076; 82947; 83036; 83735; 83880; 84443; 84484; 85025; 85610; 85730; 92610; 93005; 93306; 94760; 96360; 97112; 97116; 97161; 97165; 97530; 99285; J3480; J7040; Q9967

== ENCOUNTER 2024-10-02 14:10 | Inpatient (IN) | payer OTHER ==
[2024-10-02 15:39] VITALS: BMI 38.0
--- OUTSIDE RECORDS SUMMARY | 2024-10-02 15:40 | XMS REPORT | Continuity of Care Document ---
Author Name Unknown Address [address] [place], [place] [id number] [facility] Address [address] [place] [address] 1 [address] [place] [address] Care Team Providers Care Dry Cleaning Checker Name Role Phone Unavailable Unavailable Unavailable Encounters Start Date/Time End Date/Time Encounter Type Admission Type Attending Clinicians Care Facility Care Department Encounter ID Source 2022-02-12 16:01:06 [facility] [id number] [facility] 2021-10-23 12:52:49 [facility] [id number] [facility] 2021-10-23 12:27:24 Outpatient [facility] [id number] [facility]
[2024-10-02] MEDS ORDERED: DOCUSATE NA 100 MG CAP PO PRN (16:08)
--- NOTE | 2024-10-02 16:39 | P.HP ---
Patient History Date of Service: 10/02/24 History of Present Illness: 79yo male with PMH: HTN, DM@, obesity being admitted to inpatient rehab after acute CVA. He is coming from [facility] where he presented with left arm/leg weakness and off balance. MRI noted acute right pontine ischemic infarct. He had some improvement of his left upper and lower extremity strength, however was still having difficulty and felt he would benefit from inpatient rehab. He is alert, oriented x3, denies chest pain, shortness of breath, nausea, vomiting or dizziness but feels like he is uncoordinated. he denies medications changes. He rec'd this year's influenza vaccine one week ago. Allergies No Known Allergies Allergy (Unverified 08/19/20 00:10) Home Medications: Folic Acid 1 tab PO DAILY 09/27/24 Metoprolol Succinate 1 tab PO DAILY 09/27/24 Valsartan 1 tab PO DAILY 09/27/24 hydroCHLOROthiazide [Hydrochlorothiazide] 1 tab PO DAILY 09/27/24 Atorvastatin Calcium [Lipitor] 80 mg PO BEDTIME #90 tab 09/28/24 Clopidogrel Bisulfate [Plavix*] 75 mg PO DAILY #90 tab 09/28/24 Docusate [Colace Cap*] 100 mg PO DAILY PRN #90 cap 09/28/24 Pantoprazole [Protonix Tab*] 40 mg PO DAILY #30 tab 09/28/24 - Past Medical/Surgical History Has patient received pneumonia vaccine in the past: Yes Diabetic: Yes -: hypertension -: former tobacco (50+ years ago) -: HLD Psychosocial/ Personal History: lives at home - daughters and mehrdad at bedside. Previously without assistive devices, swims 1/2 mile daily - Family History Family History: Reviewed- Non-Contributory - Social History Smoking Status: Former smoker Alcohol use: No CD- Drugs: No Caffeine use: Yes Place of Residence: Home Review of Systems 10-point ROS is otherwise unremarkable Physical Examination - Vital Signs Temperature: 97.4 F Blood Pressure: 167/77 Pulse: 76 Respirations: 18 Pulse Ox (%): 96 Assessment and Plan - Plan Current Level Of Functioning: Currently presents with decreased upper and lower extremtiy strength, ROM with some left sided deficits. Decreased Sensation. tendency to fall to the left with ambulation, and loses balance. He is currently alert, oriented to person, place, and situation. Physical Examination: GEN: Alert, oriented x3, NAD CV: Regular rate and rhythm, no edema Pulm: Nonlabored respirations on room air, clear bilaterally abdomen: soft, nontender, nondistended Neuro: Normal speech, Decreased strength to left upper and lower at 4/5 to LLE and 3+/5 to LUE, improving dysmetria to upper and to a lesser extent lower left. Normal affect Plan: He will have physical, occupational, and speech therapy for 3.5 hours, 5 of 7 days. Aspirin 81 mg daily, Plavix 75 mg daily, Lipitor 80 mg at bedtime. Permissive hypertension, but blood pressures may be kept below 170 if possible with prn medicines as needed. Fish oil and folic acid, okay to continue. He does have GE reflux medication. Continue metoprolol. [place] 7.5/325 as needed for pain. Again, he will have physical, occupational, and speech therapy for a total of 3.5 hours, 5 of 7 days. Rehab And Medical Assessment And Plan: Mr. Shipman is a 79-year-old patient with a right pontine stroke with some deficits in the left upper and lower extremities in terms of incoordination, strength and sensation being decreased, some tendency to fall to the left with ambulation, and loses balance. Speech has been clear. Mr. Shipman has a good understanding of the process of admission to the inpatient rehabilitation facility and how he will benefit from physical, occupational, and speech therapy. Treatment activities include Transfer training, Gait training, Balance/Coordination, Therapeutic exercise, Home exercise program, Patient/Family education, Neuromuscular re-education, Stair training, and Community re-entry. Comorbidities That Are Impacting Rehabilitation: Currently, the patient is dealing with left-sided decifits in upper and lower extremities associated with decreased sensation. Patient also unsteady on his feet with some tendencies to fall to the left sided with ambulation. Barriers To Discharge: Patient dealing with some left-sided weakness and unsteady gait which could hinder his progression. Length of stay at least 7 days. Disposition: Currently expected to be home with equipment Prognosis: Good. Code Status: Full code. Rehab Goals: 1. Improve LUE strength to 4+/5MMT to aid in ADLs 2. Improve all functional transfers to CT 3. Improve UB ADLs to IND 4. Improve LB ADLs to CT with use of AE prn The above goals were reviewed with Mr. Shipman and he is in agreement. By signing this document, I acknowledge I personally performed a full physical examination on Mr. Lazaro Shipman no later than 24 hours after his admission to the inpatient rehabilitation facility and determined that he is able to tolerate the above course of treatment at an intensive level for a reasonable period of time. A detailed individualized plan of care for him will be completed by hospital day 4 based on the preadmission screen, history and physical, and therapy evaluations. - Advance Directives Does patient have a Living Will: Yes Does patient have a Durable POA for Healthcare: Yes Time Spent Managing Pts Care (In Minutes): 70
[2024-10-02 17:20] LABS: Specific Gravity 1.018 (1.005-1.030); Sqamous Epithelial <5 /HPF (None Seen); Urine Bacteria None Seen /HPF (<20); Urine Bilirubin NEGATIVE (Negative); Urine Blood 2+ (Negative); Urine Clarity Clear (Clear); Urine Color Light-Yellow (Yellow); Urine Crystals Unidentified Few /HPF (None Seen); Urine Culture Reflex Order NOT NEEDED; Urine Glucose NEGATIVE (Negative); Urine Ketones NEGATIVE (Negative); Urine Micro Reflex YN NO BILL MICROSCOPIC; Urine Mucus Slight /HPF (None Seen); Urine Nitrite NEGATIVE (Negative); Urine Protein NEGATIVE (Negative); Urine RBC >50 /HPF (None Seen); Urine Urobilinogen 1+ (Normal); Urine WBC <5 /HPF (<5)
[2024-10-02] MEDS ORDERED: ACETAMINOPHEN 500 MG TAB PO PRN (17:25)
[2024-10-02] MEDS ORDERED: MELATONIN 3 MG TABLET PO PRN (17:25)
[2024-10-02] MEDS: ATORVASTATIN 80 MG TAB PO SCH (19:59)
[2024-10-02] MEDS: APIXABAN 2.5 MG TABLET PO SCH (19:59)
[2024-10-02] MEDS: METOPROLOL XL 50 MG TAB PO SCH (20:00)
[2024-10-03 05:30] LABS: Absolute Eosinophils 0.2 K/uL (0-0.5); Absolute Lymphocytes (CBC) 1.3 K/uL (0.7-4.9); Absolute Monocytes 0.7 K/uL (0.1-1.3); Absolute Neutrophil 5.8 K/uL (1.8-8.0); Basophils % 0.5 % (0-1.3); Eosinophils % 2.1 % (0-4.4); Hematocrit 41.2 % (39.6-49.0); Hemoglobin 14.5 g/dL (13.6-17.9); Lymphocytes % 15.6 % (15.3-44.8); MCH 31.8 pg (27.0-35.0); MCHC 35.3 g/dL (32.0-36.0); MCV 90.3 fL (80-100); MPV 7.2 fL (7.6-11.3); Monocytes % 9.3 % (3.3-12.3); Neutrophils % 72.5 % (41.7-73.7); Nucleated Red Blood Cells % 0.1 % (0-0); Platelets 202 thou/uL (152-406); RBC Red Blood Cell Count 4.56 M/uL (4.33-5.43); Red Cell Distribution Width 12.9 % (12.1-15.2)
[2024-10-03 05:47] LABS: Albumin 3.2 g/dL (3.4-5.0); Anion Gap 7.7 mEq/L (5.0-15.0); Magnesium 2.1 mg/dL (1.6-2.4); Potassium 3.7 mEq/L (3.5-5.1); Prealbumin 21.3 mg/dL (20-40)
[2024-10-03] MEDS ORDERED: METOPROLOL XL 100 MG TAB PO SCH (06:00)
[2024-10-03] MEDS: PANTOPRAZOLE 40MG TABLET PO SCH (07:08)
[2024-10-03] MEDS ORDERED: ASPIRIN EC 81 MG TAB PO SCH ×2 (08:00)
[2024-10-03] MEDS ORDERED: CLOPIDOGREL 75 MG TABLET PO SCH (08:00)
[2024-10-03] MEDS: FOLIC ACID 1 MG TABLET PO SCH (08:27)
[2024-10-03] MEDS: ASPIRIN EC 81 MG TAB PO SCH (08:27)
[2024-10-03] MEDS: Multi-VIT(Centravite Senior) 1 TAB TAB PO SCH (08:27)
[2024-10-03] MEDS: MOUNJARO 7.5 MG SQ SCH (08:44)
[2024-10-03] MEDS: VALSARTAN 80 MG TAB PO SCH (11:00)
[2024-10-03] MEDS ORDERED: cloNIDine HCL 0.1 MG TAB PO PRN ×2 (13:25→20:00)
[2024-10-03] MEDS: cloNIDine HCL 0.1 MG TAB PO SCH (21:30)
--- NOTE | 2024-10-03 23:04 | PN ---
Date of Progress Note: 10/03/2024 Time Of Service: 1:40 p.m. Subjective: Mr. Shipman is doing very well. He does have a right pontine stroke with some left-sided i ncoordination and weakness, but is making great progress so far with therapy. He has no new or signi ficant complaints. Objective: No fevers, chills, nausea, vomiting, myalgias, arthralgias, rash, weight change. Has bee n doing well. Physical Examination: Vital Signs: Blood pressure 150/78, pulse 81, respiratory rate 18, temperature 98.1, O2 saturation 9 6%. General: Mr. Shipman is resting comfortably in bed. He is in no acute distress. HEENT: He is normocephalic, atraumatic. Sclerae anicteric. Oropharynx pink, moist. Neck: Supple. Chest: Clear. Extremities: Right upper and lower extremities, mild weakness and incoordination. Laboratory Studies: Complete blood count with differential is completely normal except for slightly low MPV of 7.2. Normal white blood cell count, hemoglobin, hematocrit, and platelets. His basic met abolic panel, chloride 108, BUN 19, and albumin slightly low at 3.2, otherwise completely normal. Ur inalysis shows 2+ blood, 1+ urobilinogen, rbc's greater than 50, and a mild amount of blood noted in the urine. X-ray/imaging: No new x-rays or imaging done. Medications: Tylenol Extra Strength 500 mg every 4 hours as needed, Eliquis 2.5 mg twice daily, aspi rin 81 mg daily, Lipitor 80 mg at bedtime, clonidine 0.1 mg every 4 hours for systolic blood pressure greater than 170. Does have schedule clonidine 0.1 mg twice daily for his elevated blood pressure, Colace 100 mg daily, folic acid 1 mg daily, melatonin 3 mg at bedtime, Toprol-XL 50 mg twice daily, C entrum Silver 100 mg daily, Protonix 40 mg daily, Diovan 80 mg daily. It is noted that earlier blood pressures were more elevated, currently 150/78 as noted. Progress Made With Physical, Occupational, And Speech Therapy: With physical therapy today he did be d mobility with contact guard assistance, multiple naz-kv-qcchi transfers and jbtla-sh-dqgmq transfer s also done with contact guard assistance. He did ambulate 200 feet with contact guard assistance an d minimum assistance using a rolling walker. He was able to go up and down 10 steps with minimum ass istance. With his occupational therapy, did upper body strengthening exercises and endurance exercis es 10 minutes on the arm bike and did very well. He is supervision for body dressing, minimum assist ance with cleaning and drying buttocks when he was in the restroom. He was seen by speech today with plans of medication for his verbal understanding in terms of his speech, language. He was independe nt for comprehension and expression and did actually very well. He scored a step 27 on the slums in the normal range and the BIM score was 15 and no further speech was warranted. He had no issues of s wallowing. Assessment: Mr. Shipman is a 79-year-old patient in the rehabilitation unit with a right pontine stroke with some left-sided upper and lower extremity incoordination and weakness. No speech or cognitive issues from his stroke. He does have hypertension which is likely the cause of his lacunar type infa rcts. Also, he is on multiple medications for that. He has Eliquis for DVT prophylaxis, aspirin for stroke risk reduction, Lipitor for dyslipidemia. There is melatonin for insomnia Protonix for GE re flux. Plan: He will continue physical and occupational without speech therapy 3 hours a day, 5 to 7 days. Continue with comorbid condition, medications as noted above. The patient is done very well and bernice aldana would benefit from outpatient rehab as he is progressing in a very excellent manner. SEVERO/BUDDY Voice ID: [id number] Report ID: [id number]
[2024-10-04] MEDS: lisinopriL 5 MG TAB PO SCH (19:17)
--- NOTE | 2024-10-04 23:31 | PN ---
Date of Progress Note: 10/04/2024 Time Of Service: 1:35 p.m. Subjective: Mr. Shipman is very happy so far with therapy, making great progress, has no significant co mplaints. Able to do all that therapists are asking. Does still have left-sided incoordination, wea kness, and tendency to drift to that side. Objective: Denies any fevers, chills, nausea, vomiting, myalgias, arthralgias. No rash. No other c omplaints. Physical Examination: Vital Signs: Blood pressure 151/81, pulse 75, respiratory rate 16, temperature 97.7, oxygen saturati on 98%. General: Mr. Shipman is resting comfortably in his room in between therapy sessions. HEENT: Appears normocephalic, atraumatic. Sclerae anicteric. Oropharynx pink, moist. Neck: Supple. Chest: Clear. Neuro: Does have some incoordination noted in his left more than right upper and lower extremities. He does of course have a right pontine lacunar infarct. Laboratory Studies: No new laboratory studies done today. X-ray/imaging: No new x-rays or imaging. Medications: Medications have been reviewed and remain unchanged since yesterday. Progress Made With Physical And Occupational Therapy: With physical therapy, he was able to do multi ple gvscba-ty-vjz transfers independently, perform multiple rrc-ew-nbgcg transfers independently, sta nd-to-pivot transfers done independently. He ambulated 500 feet twice, 250 feet 3 times, and 125 fee t twice with contact guard assistance using a rolling walker. He was able to go up and down 15 steps with bilateral handrails with contact guard assistance. With occupational therapy, supervision requ ired for gyz-yt-wgebv transfers, ambulated from room to shower with a rolling walker, completed showe ring and transferring with supervision due to his left lower extremity weakness. Supervision require d for bathing, upper body dressing, lower body dressing, and footwear donning and doffing. Did work on stretching of shoulder to improve his range of motion and more control. Assessment: Mr. Shipman is a 79-year-old patient with a right pontine stroke, left-sided weakness, inco ordination. He is making overall fair progress in terms of recovery of his functional activity, mobi lization, transfers, strength, incoordination. He has comorbidities of decreased mobility, decreased physical functioning in addition to hypertension, GE reflux, dyslipidemia, constipation, insomnia. Plan: 1.He will continue with physical and occupational therapy 3 hours a day, 5 of 7 days. 2.His comorbid conditions will be addressed by continuing aspirin for stroke risk reduction, Eliquis for DVT risk reduction, Colace for constipation, clonidine as needed 0.1 for hypertension, Prinivil scheduled 2.5 mg twice daily has been added today for blood pressure control, Toprol-XL 50 mg twice d aily continued, valsartan 80 mg daily also continued for blood pressure control, Protonix continued f or GE reflux, and Centrum Silver multivitamin on board. He will continue again with physical and occ upational therapy 3 hours a day, 5 of 7 days. SEVERO/BUDDY Voice ID: [id number] Report ID: [id number]
--- NOTE | 2024-10-05 22:01 | PN ---
Subjective: Mr. Shipman is very happy with his therapy. He is sitting beside the window, looking out o f the window. He says he is making great progress, becoming stronger, and his balance and coordinati on are improving. Objective: No fevers, chills, nausea, vomiting. No myalgias, arthralgias, rash, or psychiatric issu es. Physical Examination: Vital Signs: Blood pressure 138/64, pulse 74, respiratory rate 16, temperature 97.6, oxygen saturati on 100%. General: Mr. Shipman is sitting comfortably. He is in no acute distress. HEENT: Normocephalic, atraumatic. Sclerae anicteric. Oropharynx pink, moist. Neck: Supple. Chest: Clear. Extremities: Left and upper lower extremities show some incoordination and weakness, again becoming stronger with his therapy sessions. Laboratory Studies: No new laboratory studies. X-ray/imaging: No new x-rays or imaging. Medications: Medications have been reviewed and are unchanged compared to his previous medications. He is on the Prinivil 2.5 mg twice daily to help with better blood pressure control. Blood pressure s are again doing better, 138/64. Progress Made With Physical And Occupational Therapy: With physical therapy today, he was able to do multiple syubrr-jq-hqw transfers independently, multiple egc-so-ljoxn transfers done independently, vzevt-lq-wlpvw transfers done independently. Ambulated 500 feet 3 times and 250 feet twice, another 600 feet once with standby assistance using a rolling walker. Ascended and descended 15 steps with b ilateral handrails with standby assistance. With occupational therapy, independent with bzi-yi-pugot transfers, and ambulated starting from the room to the shower with a rolling walker independently. Independent with upper body dressing, lower body dressing, donning and doffing footwear and no loss o f balance noted. Assessment: Mr. Shipman is a 79-year-old patient with a right pontine stroke. He has decreased mobilit y, decreased physical functioning, hypertension, dyslipidemia, constipation, and of course risk for d eep vein thrombus. Plan: He will continue with physical and occupational therapy 3 hours a day, 5 of 7 days. Continue with aggressive management of his hypertension. Address GE reflux as noted with Protonix. Folic aci d 1 mg daily to assist with stroke risk reduction. He does have aspirin along with that as well. He has Eliquis 2.5 mg twice daily for DVT risk reduction, Colace for constipation, clonidine for systol ic blood pressure greater than 170 q.4 as needed. SEVERO/BUDDY Voice ID: [id number] Report ID: [id number]
[2024-10-06 07:08] LABS: Absolute Eosinophils 0.1 K/uL (0-0.5); Absolute Lymphocytes (CBC) 1.3 K/uL (0.7-4.9); Absolute Monocytes 0.8 K/uL (0.1-1.3); Absolute Neutrophil 5.7 K/uL (1.8-8.0); Basophils % 0.6 % (0-1.3); Eosinophils % 1.3 % (0-4.4); Hematocrit 44.7 % (39.6-49.0); Hemoglobin 15.3 g/dL (13.6-17.9); Lymphocytes % 16.6 % (15.3-44.8); MCH 31.5 pg (27.0-35.0); MCHC 34.3 g/dL (32.0-36.0); MCV 91.7 fL (80-100); MPV 7.3 fL (7.6-11.3); Monocytes % 10.3 % (3.3-12.3); Neutrophils % 71.2 % (41.7-73.7); Platelets 232 thou/uL (152-406); RBC Red Blood Cell Count 4.88 M/uL (4.33-5.43); Red Cell Distribution Width 12.9 % (12.1-15.2)
[2024-10-06 07:16] LABS: Albumin 3.5 g/dL (3.4-5.0); Anion Gap 7.2 mEq/L (5.0-15.0); Magnesium 2.3 mg/dL (1.6-2.4); Potassium 4.2 mEq/L (3.5-5.1); Prealbumin 21.4 mg/dL (20-40)
--- NOTE | 2024-10-07 00:01 | PN ---
Date of Progress Note: 10/06/2024 Time Of Service: 1:25 p.m. Subjective: Mr. Shipman is resting in bed. He did request a prescription for a handicap placard that w as done. Otherwise, he has no new complaints, very happy with his therapy, improving strength on his left side where a stroke affected him. He has a right pontine stroke. Review of Systems: Denies any fevers, chills. No significant nausea or vomiting, myalgias, arthralgias, or new complain ts. Did have some new spasming down the left thigh and leg and the left arm where this stroke caused weakness in the kind of shoulder area on the left side. Lidocaine patch will be placed there on the left leg and lateral calf area. Otherwise, his medications are unchanged. Physical Examination: Vital Signs: Blood pressure 149/67, pulse 72, respiratory rate 16, temperature 97.9, oxygen saturati on 92%. General: Again, Mr. Shipman is mostly resting in bed. Does report again some pain in the left shoulder , left thigh and leg. HEENT: Otherwise, he is normocephalic, atraumatic. Sclerae anicteric. Oropharynx pink, moist. Neck: Supple. Neuro: His strength on the left is around 3/5 proximally and distally in lower and upper extremity, on the right side fully strong. Sensation decreased on the left compared to the right side. Laboratory Studies: Complete blood count differential is completely normal. White blood cell count 8, hemoglobin 15.3, platelets 232. His basic metabolic panel essentially unremarkable with normal so dium, potassium, chloride, carbon dioxide, BUN, creatinine. Glucose 97, prealbumin 21.4, albumin 3.5 , magnesium 2.3, calcium 9.5, and his urine cultures grew less than 10,000 colony-forming units. X-ray/imaging: No new x-ray or imaging done. Progress Made With Physical And Occupational Therapy: With physical therapy today, performed multipl e bfe-cb-ssyvj and gubuno-yh-lim transfers independently, kzhqv-xk-bwtkv transfers independent. Roll ing walker, he covered 500 feet twice, 250 feet once, and 600 feet once with independence using a [employer] walker, used a quad cane. Ambulated 300 feet and 100 feet with standby assistance. Up and down 15 steps with bilateral handrails with independence. With occupational therapy, independent with si t-to-stand transfers, going from room to gym with a rolling walker, all independently. Did have left lower extremity knee buckled once with no loss of balance, independent with toilet hygiene, making e xcellent progress towards his discharge and going home. Assessment: Mr. Shipman is a 79-year-old patient in the rehabilitation unit with a right pontine stroke , left-sided paresis. He does have decreased mobility, decreased physical functioning, hypertension, dyslipidemia, constipation, GE reflux. Plan: 1.He will continue with physical and occupational therapy 3 hours a day, 5 of 7 days. 2.Continue with comorbid condition medications for hypertension, dyslipidemia, for insomnia, for str ayaan risk reduction, for DVT risk reduction as well as to address his pain. He has lidocaine for pain in the left shoulder and he does have some muscle spasms. He was told by his that the pain in the left shoulder may be related to the weakness as the shoulder is less strong and there are brachia l plexus nerves where that may be tugged on and a shoulder brace may potentially be helpful, but for now patches will be applied that is lidocaine patches. SEVERO/BUDDY Voice ID: [id number] Report ID: [id number]
[2024-10-07] MEDS: LIDOCAINE 4% PATCH TOP SCH (08:36)
--- NOTE | 2024-10-07 14:06 | P.RH.PN ---
Estimated Length of Stay: 10 Expected Discharge Date: 10/08/24 Discharge Disposition Plan: Home Family Support: Yes Retirement Goal: Mobility, Transfers, Self Care Vital Signs: Last Vital Signs Temp 98.3 F 10/07/24 08:00 Pulse 68 10/07/24 08:36 Resp 18 10/07/24 08:00 BP 164/74 H 10/07/24 08:36 Pulse Ox 93 10/07/24 08:00 Laboratory: Laboratory Last Values WBC 8.00 thou/uL (4.3-10.9) 10/06/24 06:27 RBC 4.88 M/uL (4.33-5.43) 10/06/24 06:27 Hgb 15.3 g/dL (13.6-17.9) 10/06/24 06:27 Hct 44.7 % (39.6-49.0) 10/06/24 06:27 MCV 91.7 fL (80-100) 10/06/24 06:27 MCH 31.5 pg (27.0-35.0) 10/06/24 06:27 MCHC 34.3 g/dL (32.0-36.0) 10/06/24 06:27 RDW 12.9 % (12.1-15.2) 10/06/24 06:27 Plt Count 232 thou/uL (152-406) 10/06/24 06:27 MPV 7.3 fL (7.6-11.3) L 10/06/24 06:27 Neutrophils % 71.2 % (41.7-73.7) 10/06/24 06:27 Lymphocytes % 16.6 % (15.3-44.8) 10/06/24 06:27 Monocytes % 10.3 % (3.3-12.3) 10/06/24 06:27 Eosinophils % 1.3 % (0-4.4) 10/06/24 06:27 Basophils % 0.6 % (0-1.3) 10/06/24 06:27 Absolute Neutrophils 5.7 K/uL (1.8-8.0) 10/06/24 06:27 Absolute Lymphocytes 1.3 K/uL (0.7-4.9) 10/06/24 06:27 Absolute Monocytes 0.8 K/uL (0.1-1.3) 10/06/24 06:27 Absolute Eosinophils 0.1 K/uL (0-0.5) 10/06/24 06:27 Absolute Basophils 0.0 K/uL (0-0.5) 10/06/24 06:27 Sodium 139 mEq/L (136-145) 10/06/24 06:27 Potassium 4.2 mEq/L (3.5-5.1) 10/06/24 06:27 Chloride 107 mEq/L (98-107) 10/06/24 06:27 Carbon Dioxide 29 mEq/L (21-32) 10/06/24 06:27 Anion Gap 7.2 mEq/L (5.0-15.0) 10/06/24 06:27 BUN 16 mg/dL (7-18) 10/06/24 06:27 Creatinine 1.01 mg/dL (0.70-1.30) 10/06/24 06:27 Est GFR (CKD-EPI) 76 ml/min (=/>90) L 10/06/24 06:27 Glucose 97 mg/dL (74-106) 10/06/24 06:27 Hemoglobin A1c Cancelled 10/04/24 05:00 Calcium 9.5 mg/dL (8.5-10.1) 10/06/24 06:27 Magnesium 2.3 mg/dL (1.6-2.4) 10/06/24 06:27 Albumin 3.5 g/dL (3.4-5.0) 10/06/24 06:27 Prealbumin 21.4 mg/dL (20-40) 10/06/24 06:27 Urine Color Light-yellow (Yellow) 10/02/24 16:50 Urine Clarity Clear (Clear) 10/02/24 16:50 Urine pH 6.0 (5.0-7.0) 10/02/24 16:50 Ur Specific [place] 1.018 (1.005-1.030) 10/02/24 16:50 Glucose (UA)(Auto) Negative (Negative) 10/02/24 16:50 Urine Ketones Negative (Negative) 10/02/24 16:50 Urine Blood 2+ (Negative) H 10/02/24 16:50 Urine Nitrite Negative (Negative) 10/02/24 16:50 Urine Bilirubin Negative (Negative) 10/02/24 16:50 Urine Urobilinogen 1+ (Normal) H 10/02/24 16:50 Ur Leukocyte Esterase Negative Avelino/uL (Negative) 10/02/24 16:50 Urine RBC >50 /HPF (None Seen) H 10/02/24 16:50 Urine WBC <5 /HPF (<5) 10/02/24 16:50 Ur Squamous Epith Cells <5 /HPF (None Seen) 10/02/24 16:50 Unidentified Crystals Few /HPF (None Seen) 10/02/24 16:50 Urine Bacteria None seen /HPF (<20) 10/02/24 16:50 Urine Mucus Slight /HPF (None Seen) 10/02/24 16:50 Urine Culture Reflexed Not needed 10/02/24 16:50 Urine Total Protein Negative (Negative) 10/02/24 16:50 Weight: 250 lb Wound Present: No Closed Surgical Incision Present: No Negative Pressure Wound Therapy Present: No Physician Update: Labs reviewed and are stable. Met 3/4 STG, 4/6 LTG. RW 600' and quad cane 300'. Independent with OT but mildly unsteady. Summary: Patient's care plan and penitentiary goals have been reviewed and revised as necessary. Please see the Rehabilitation Signature page for all necessary signatures.
[2024-10-11 15:06] VITALS: BP 168/81; TEMP 97.8
== END 2024-10-08 11:00 | disposition home or self-care (01) | DRG 57 ==
LOC: 5TH 15:37
PROVIDERS: ADMIT Psychiatry & Neurology Neurology with Special Qualifications in Child Neurology; ATTEND Psychiatry & Neurology Neurology with Special Qualifications in Child Neurology
DX: I69.354 Hemiplegia and hemiparesis following cerebral infarction affecting left non-dominant side (principal); I10 Essential (primary) hypertension; E78.5 Hyperlipidemia, unspecified; G47.00 Insomnia, unspecified; K21.9 Gastro-esophageal reflux disease without esophagitis; K59.00 Constipation, unspecified; Z87.891 Personal history of nicotine dependence
CPT/HCPCS: 36415; 80048; 81001; 82040; 83735; 84134; 85025; 87086; 87088; 92523; 97110; 97116; 97163; 97165; 97530; 97542; J2003

== ENCOUNTER 2025-05-21 14:35 | Emergency (ER) | payer OTHER ==
--- OUTSIDE RECORDS SUMMARY | 2025-05-21 14:39 | XMS REPORT | Continuity of Care Document ---
Author Name Unknown Address [address] [facility] [address] [place] [address] [facility] Address [address] [facility] [place] [address] Care Team Providers Care Sandblast Or Shotblast Equipment Tender Name Role Phone Jaelyn Diaz Attending Clinician Unavailable Jaelyn Diaz Admitting Clinician Unavailable Encounters Start Date/Time End Date/Time Encounter Type Admission Type Attending Clinicians Care Facility Care Department Encounter ID Source 2024-10-21 10:51:00 Outpatient Jaelyn Diaz [facility] [id number] [facility] 2022-02-12 16:01:06 Outpatient [facility] [id number] [facility] 2021-10-23 12:52:49 [facility] [id number] [facility] 2021-10-23 12:27:24 [facility] [id number] [facility]
[2025-05-21] MEDS ORDERED: KETOROLAC 30 MG/ML INJ ONE (15:09)
[2025-05-21] MEDS ORDERED: MORPHINE 2 MG/ML SYR ONE (15:09)
--- NOTE | 2025-05-21 15:35 | RAD REPORT ---
EXAMINATION: CT ABDOMEN AND PELVIS WITHOUT CONTRAST CLINICAL INDICATION: Abdominal pain. Back pain TECHNIQUE: CT abdomen and pelvis was performed, as per department protocol. IV contrast and oral was not administered.Axial, sagittal and coronal reconstructions were obtained. One or more of the following dose reduction techniques were used: Automated exposure control, adjustment of the mA and/o r kV according to the patient size, and/or iterative reconstruction. Unless otherwise specified, incidental findings do not require dedicated imaging follow-up. [id number]. COMPARISON: 2020 CT abdomen and x-ray lumbar spine May 12, 2025 FINDINGS: The lack of intravenous and oral contrast limits evaluation of solid organs, vessels and bowel. 4 mm calculus left kidney. Minimal left hydronephrosis. 6 mm calculus distal left ureter. Punctate calcifications right kidney probably vascular. No hydronephrosis. Liver, spleen, pancreas and adrenals grossly normal. Normal appendix. Small inguinal hernias. Mild to moderate anterior subluxation L5 on S1. Spondylolysis L5. Mild to moderate subacute compression fracture L3 vertebral body. Compression estimated 30%. No evidence of diverticulitis. 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 IMPRESSION: 6 mm calculus distal left ureter results in minimal left hydronephrosis. Mild to moderate subacute compression fracture L3 vertebral body.
[2025-05-21] MEDS ORDERED: TAMSULOSIN 0.4 MG SR CAP ONE (15:39)
[2025-05-21] MEDS ORDERED: MAGNESIUM SULFATE 1 gm IVPB 1 GM/100 ML BAG IV ONE (15:40)
[2025-05-21 15:54] LABS: Absolute Lymphocytes (CBC) 1.0 K/uL (0.7-4.9); Hematocrit 44.6 % (39.6-49.0); Hemoglobin 15.3 g/dL (13.6-17.9); MCH 30.6 pg (27.0-35.0); MCHC 34.3 g/dL (32.0-36.0); MCV 89.2 fL (80-100); MPV 7.0 fL (7.6-11.3); Nucleated RBC Absolute Count 0.0 (0-0); Nucleated Red Blood Cells % 0.2 % (0-0); RBC Red Blood Cell Count 5.00 M/uL (4.33-5.43); White Blood Count 6.20 thou/uL (4.3-10.9)
[2025-05-21 16:19] LABS: ALT/SGPT 40.0 U/L (16-61); AST/SGOT 28.0 U/L (15-37); Albumin 3.5 g/dL (3.4-5.0); Albumin/Globulin Ratio 1.0 (1.1-1.8); Alkaline Phosphatase 178.0 U/L (45-117); Anion Gap 10.0 mEq/L (5.0-15.0); BUN Blood Urea Nitrogen 15.0 mg/dL (7-18); Globulin 3.5 g/dL (2.3-3.5); Glucose Level 86.0 mg/dL (74-106); Lipase 37.0 U/L (13-75); Potassium 4.0 mEq/L (3.5-5.1)
--- NOTE | 2025-05-21 17:02 | ER ---
Nurse's Notes [facility] Name: Lazaro Shipman Age: 80 yrs Sex: Male : 1945 Arrival Date: 05/21/2025 Time: 14:35 Bed 6 Private MD: Diagnosis: Low back pain;Calculus of ureter;Wedge compression fracture of unspecified lumbar vertebra-Subacute Presentation: 05/21 14:51 Chief complaint: Patient states: right low back pain , he fell earlier this month and iw has had pain since then, he has been seen by his PCP and they gave him a steroid shot and other medications. Coronavirus screen: At this time, the client does not indicate any symptoms associated with coronavirus-19. Ebola Screen: No symptoms or risks identified at this time. Risk Assessment: Do you want to hurt yourself or someone else? Patient reports no desire to harm self or others. 14:51 Method Of Arrival: Wheelchair iw 14:51 Acuity: KERI 3 iw 14:52 Initial Sepsis Screen: Does the patient meet any 2 criteria? No. Patient's initial iw sepsis screen is negative. Does the patient have a suspected source of infection? No. Patient's initial sepsis screen is negative. 15:05 Onset of symptoms was April 28, 2025. nh2 Triage Assessment: 15:04 General: Appears in no apparent distress. uncomfortable, Behavior is calm, cooperative, nh2 appropriate for age. Pain: Complains of pain in back and right low back Pain radiates to right leg Pain currently is 10 out of 10 on a pain scale. Quality of pain is described as aching, Pain began 3 weeks ago Is intermittent. Musculoskeletal: Range of motion: intact in all extremities. Historical: - Allergies: 15:00 No Known Allergies; nh2 - PMHx: 14:53 Hypertension; iw 15:00 Diabetes mellitus; Cerebrovascular accident; nh2 - PSHx: 15:00 None; nh2 - Immunization history:: Adult Immunizations up to date. - Infectious Disease History:: Denies. - Family history:: not pertinent. - Hospitalizations: : No recent hospitalization is reported. - Social history:: Smoking status: Patient denies any tobacco usage or history of. Screenin:00 [facility] ED Fall Risk Assessment (Adult) History of falling in the last 3 months, nh2 including since admission Yes- single mechanical fall (1 pt) Confusion or Disorientation No (0 pts) Intoxicated or Sedated No (0 pts) Impaired Gait No (0 pts) Mobility Assist Device Used Yes (1 pt) Altered Elimination No (0 pt) Score/Fall Risk Level 0 - 2 = Low Risk. [facility] ED Fall Risk Assessment (Adult) Score/Fall Risk Level 0 - 2 = Low Risk Oriented to surroundings, Maintained a safe environment, Educated pt \T\ family on fall prevention, incl call for assistance when getting out of bed, Assessed \T\ reinforced patient's understanding of fall precautions. Abuse screen: Denies threats or abuse. Denies injuries from another. Nutritional screening: No deficits noted. Tuberculosis screening: No symptoms or risk factors identified. Assessment: 15:00 General: Appears in no apparent distress. uncomfortable, Behavior is calm, cooperative, nh2 appropriate for age. Pain: Complains of pain in low back area, right flank, right mid back and right low back Pain radiates to right leg Pain currently is 10 out of 10 on a pain scale. Quality of pain is described as aching, Pain began states having pain since a fall 3 weeks ago Is intermittent. Neuro: Level of Consciousness is awake, alert, obeys commands, Oriented to person, place, time, situation, Appropriate for age. Cardiovascular: Patient's skin is warm and dry. Respiratory: Airway is patent Trachea midline Respiratory effort is even, unlabored, Respiratory pattern is regular, symmetrical. GI: Abdomen is round non-distended, Patient currently denies nausea, vomiting. : No signs and/or symptoms were reported regarding the genitourinary system. EENT: No signs and/or symptoms were reported regarding the EENT system. Derm: Skin is intact, is healthy with good turgor. Musculoskeletal: Range of motion: intact in all extremities. 15:56 Reassessment: Patient is alert, oriented x 3, equal unlabored respirations, skin nh2 warm/dry/pink. Patient states feeling better. Patient states symptoms have improved. rates pain 5/10. Vital Signs: 15:05 BP 168 / 86; Pulse 87; Resp 18; Temp 97.2; Pulse Ox 100% ; Weight 102.06 kg; Height 5 nh2 ft. 8 in. ; Pain 10/10; 16:01 BP 151 / 67; Pulse 88; Resp 18; Pulse Ox 97% on R/A; Pain 5/10; nh2 15:05 Body Mass Index 34.21 (102.06 kg, 172.72 cm) nh2 15:05 Pain Scale: Adult nh2 16:01 Pain Scale: Adult nh2 ED Course: 14:39 Patient arrived in ED. ts1 14:39 Yordan Contreras MD is Attending Physician. rn 14:52 Triage completed. iw 15:00 Monico Redd Jr, RN is Primary Nurse. nh2 15:00 Patient has correct armband on for positive identification. Bed in low position. Call nh2 light in reach. Side rails up X 1. Provided Education on: using call light for assistance. 15:05 Arm band placed on right wrist. nh2 15:16 CT Abd/Pelvis - Without Contrast In Process Unspecified. EDMS 15:20 Inserted saline lock: 20 gauge in right antecubital area, using aseptic technique. nh2 Blood collected. Flushed with 10 mL NS. 15:32 CBC with Diff Sent. nh2 15:32 Lipase Sent. nh2 15:57 No provider procedures requiring assistance completed. nh2 18:09 IV discontinued, intact, bleeding controlled, No redness/swelling at site. Pressure iw dressing applied. Administered Medications: 15:32 Drug: morphine IVP or IV 2 mg IVP once over 4 mins Route: IVP; Infused Over: 4 mins; nh2 Site: right antecubital; 15:54 Follow up: Response: No adverse reaction; Pain is decreased; RASS: Alert and Calm (0) nh2 15:32 Drug: Ketorolac IVP 15 mg IVP once Route: IVP; Site: right antecubital; nh2 15:54 Follow up: Response: No adverse reaction; Pain is decreased nh2 15:32 Drug: Decadron - Dexamethasone IVP 10 mg IVP once Route: IVP; Site: right antecubital; nh2 15:55 Follow up: Response: No adverse reaction nh2 15:52 Drug: Magnesium Sulfate IVPB 1 grams IVPB once over 1 hrs Route: IVPB; Infused Over: 1 nh2 hrs; Site: right antecubital; 16:52 Follow up: Response: No adverse reaction; IV Status: Completed infusion; IV Intake: nh2 100ml 15:53 Drug: Flomax PO 0.4 mg PO once Route: PO; nh2 16:07 Follow up: Response: No adverse reaction nh2 Medication: 15:00 VIS not applicable for this client. nh2 Intake: 16:52 IV: 100ml; Total: 100ml. nh2 Outcome: 17:01 Discharge ordered by . roland 18:09 Discharged to home ambulatory, 18:09 Condition: stable 18:09 Discharge instructions given to patient, family, Instructed on discharge instructions, follow up and referral plans. medication usage, Demonstrated understanding of instructions, follow-up care, medications, Prescriptions given X 2, 18:10 Patient left the ED. iw Signatures: Dispatcher [employer] Kylie Gutierrez, RN ROLAND Yordan Contreras MD MD rn Simpson, Tanya, PAS PAS ts1 Monico Redd Jr, RN RN nh2
--- NOTE | 2025-05-21 17:02 | EDPHYS ---
Physician Documentation [facility] Name: Lazaro Shipman Age: 80 yrs Sex: Male : 1945 Arrival Date: 05/21/2025 Time: 14:35 Bed 6 Private MD: ED Physician Yordan Contreras HPI: 05/21 15:01 This 80 yrs old Male presents to ER via Wheelchair with complaints of Back rn Pain. 15:01 Patient reports right lower back pain with radiation down right leg. 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 No weakness. Patient reports has had back pain before but able to manage it with [id number] pain medication. 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 Seen by PCP this month for back pain and prescribed steroids that seemed to help. Patient reports no new trauma or fall recently. No abdominal pain. Does not feel like this is previous like kidney stone. Historical: - Allergies: 15:00 No Known Allergies; nh2 - PMHx: 14:53 Hypertension; iw 15:00 Diabetes mellitus; Cerebrovascular accident; nh2 - PSHx: 15:00 None; nh2 - Immunization history:: Adult Immunizations up to date. - Infectious Disease History:: Denies. - Family history:: not pertinent. - Hospitalizations: : No recent hospitalization is reported. - Social history:: Smoking status: Patient denies any tobacco usage or history of. ROS: 15:01 Constitutional: Negative for fever, chills, and weight loss, Cardiovascular: Negative rn for chest pain, palpitations, and edema, Respiratory: Negative for shortness of breath, cough, wheezing, and pleuritic chest pain, Abdomen/GI: Negative for abdominal pain, nausea, vomiting, diarrhea, and constipation, Back: Positive for back pain : Negative for injury, bleeding, discharge, and swelling, MS/Extremity: Negative for injury and deformity, Skin: Negative for injury, rash, and discoloration, Neuro: Negative for headache, weakness, numbness, tingling, and seizure, Exam: 15:01 Constitutional: This is a well developed, well nourished patient who is awake, alert, rn and in no acute distress. Cardiovascular: Regular rate and rhythm. No pulse deficits. Respiratory: No increased work of breathing, no retractions or nasal flaring. Abdomen/GI: Soft, non-tender Back: Negative for midline spinal tenderness. MS/ Extremity: Pulses equal, no cyanosis. Neurovascular intact. Full, normal range of motion. Equal circumference. Neuro: Awake and alert, GCS 15 Vital Signs: 15:05 BP 168 / 86; Pulse 87; Resp 18; Temp 97.2; Pulse Ox 100% ; Weight 102.06 kg; Height 5 nh2 ft. 8 in. ; Pain 10/10; 16:01 BP 151 / 67; Pulse 88; Resp 18; Pulse Ox 97% on R/A; Pain 5/10; nh2 15:05 Body Mass Index 34.21 (102.06 kg, 172.72 cm) nh2 15:05 Pain Scale: Adult nh2 16:01 Pain Scale: Adult nh2 MDM: 14:39 Medical Screening Exam initiated rn 15:54 Differential diagnosis: arthritis, chronic back pain, Fracture Osteoarthritis ruptured rn disc, sprain, Ureterolithiasis vertebral fracture. Data reviewed: vital signs, nurses notes, lab test result(s), radiologic studies, CT scan, and as a result, I will discharge patient. Independent interpretation of the following test(s) in the Emergency Department CT Scan: My interpretation is CT shows left distal ureteral stone per my interpretation.. Test considered but Not performed: MRI: MRI not available. Care significantly affected by the following chronic conditions: Diabetes, Hypertension. Counseling: I had a detailed discussion with the patient and/or guardian regarding the historical points, exam findings, and any diagnostic results supporting the discharge/admit diagnosis, radiology results, the need for outpatient follow up, to return to the emergency department if symptoms worsen or persist or if there are any questions or concerns that arise at home. Response to treatment: the patient's symptoms have markedly improved after treatment. 17:00 Special discussion: I discussed with the patient/guardian in detail that at this point rn there is no indication for admission to the hospital. It is understood, however, that if the symptoms persist or worsen the patient needs to return immediately for re-evaluation. Based on the history and exam findings, there is no indication for further emergent testing or inpatient evaluation. I discussed with the patient/guardian the need to see the primary care provider for further evaluation of the symptoms. ED course: Patient feels much better, laughing and making jokes. Nontoxic. I have personally reviewed all of the results, including but not limited to blood tests and imaging deemed necessary to safely discharge this patient at this time. All results given to and printed out for patient. I personally went over all the results with the patient and answered all questions. Patient will follow-up with PCP and or specialist as discussed. Return precautions given and understood.. 05/21 14:42 Order name: CBC with Diff; Complete Time: 16:09 rn 05/21 14:42 Order name: CMP; Complete Time: 16:37 rn 05/21 14:42 Order name: Lipase; Complete Time: 16:37 rn 05/21 14:42 Order name: CT Abd/Pelvis - Without Contrast; Complete Time: 15:36 rn 05/21 14:42 Order name: IV Saline Lock; Complete Time: 15:32 rn 05/21 14:42 Order name: Labs collected and sent; Complete Time: 15:32 rn Administered Medications: 15:32 Drug: morphine IVP or IV 2 mg IVP once over 4 mins Route: IVP; Infused Over: 4 mins; nh2 Site: right antecubital; 15:54 Follow up: Response: No adverse reaction; Pain is decreased; RASS: Alert and Calm (0) nh2 15:32 Drug: Ketorolac IVP 15 mg IVP once Route: IVP; Site: right antecubital; nh2 15:54 Follow up: Response: No adverse reaction; Pain is decreased nh2 15:32 Drug: Decadron - Dexamethasone IVP 10 mg IVP once Route: IVP; Site: right antecubital; nh2 15:55 Follow up: Response: No adverse reaction nh2 15:52 Drug: Magnesium Sulfate IVPB 1 grams IVPB once over 1 hrs Route: IVPB; Infused Over: 1 nh2 hrs; Site: right antecubital; 16:52 Follow up: Response: No adverse reaction; IV Status: Completed infusion; IV Intake: nh2 100ml 15:53 Drug: Flomax PO 0.4 mg PO once Route: PO; nh2 16:07 Follow up: Response: No adverse reaction nh2 Disposition Summary: 05/21/25 17:01 Discharge Ordered Notes: Location: Home rn Problem: new rn Symptoms: have improved rn Condition: Stable rn Diagnosis - Low back pain rn - Calculus of ureter rn - Wedge compression fracture of unspecified lumbar vertebra - Subacute(05/21/25 17:02)rn Followup: rn - With: Private Physician - When: As needed - Reason: Recheck today's complaints, Re-evaluation by your physician Discharge Instructions: - Discharge Summary Sheet rn - Acute Back Pain, Adult rn - Kidney Stones rn - Lumbar Spine Fracture rn Forms: - Medication Reconciliation Form rn - Antibiotic product managent intern - Prescription Opioid Use rn - Patient Portal Instructions rn - Leadership Thank You Letter rn Prescriptions: - gabapentin 100 mg Oral capsule - take 1 capsule ORAL route 2 times per day As needed; 14 capsule; Refills: 0, rn Product Selection Permitted - Medrol (Terry) 4 mg Oral Tablets, Dose Pack - take 1 tablet ORAL route as directed - follow package instructions; 1 packet; rn Refills: 0, Product Selection Permitted Signatures: Dispatcher [employer] EDKylie Cardoso RN RN iw Nieto, Roman, MD MD rn Hernandez Jr, ROLAND Marc RN nh2 Corrections: (The following items were deleted from the chart) 14:42 14:42 CBC+H.LAB.BRZ ordered. EDMS EDMS 14:42 14:42 COMPREHENSIVE METABOLIC PANEL+C.LAB.BRZ ordered. EDMS EDMS 14:42 14:42 LIPASE+C.LAB.BRZ ordered. EDMS EDMS 14:42 14:42 UA Rfx Kranthi Cult if indicated+U.LAB.BRZ ordered. EDMS EDMS 14:42 14:42 Abdomen Pelvis Wo Con+CT.RAD.BRZ ordered. EDMS EDMS 17:02 17:01 Wedge compression fracture of unspecified lumbar vertebra rn rn
[2025-05-21 18:31] VITALS: TEMP 97.2
[2025-05-21 18:33] VITALS: BP 151/67; O2SAT 97
== END 2025-05-21 18:10 | disposition home or self-care (01) ==
LOC: ER 14:35
DX: N20.1 Calculus of ureter (principal); S32.030A Wedge compression fracture of third lumbar vertebra, initial encounter for closed fracture
CPT/HCPCS: 96365; 85025; 36415; 83690; 80053; 74176; 96375; 99284; J3475; J1100; J2270